=== PATIENT | male | born 1945 | race African-American/Black ===

== ENCOUNTER 2016-10-17 03:58 | Emergency (ER) | payer MEDICARE, MEDICAID ==
[2016-10-17 04:08] VITALS: BP 169/79
--- NOTE | 2016-10-17 04:18 | ER Document Report ---
ED General - General Stated Complaint: FALL ANKLE PAIN Time Seen by Provider: 10/17/16 04:07 Notes: Patient is a 71-year-old male who is brought in from the prison because he fell. The initial complaint via the paramedics was at the prison thought that he hurt his right ankle. Patient denies any pain to me. At the prison the patient was able to get out of his bed and walk to the stretcher and then lay down on the stretcher. He denies any has had. I did review his records and he is not on any blood thinners. He does have history of dementia. He says that he fell of his bed when he was trying to get out. He says his knee hit the rail and he fell. No other complaints at this time. She denies back pain. He denies head pain. Denies chest or abdomen pain. TRAVEL OUTSIDE OF THE [place] IN LAST 30 DAYS: No - Related Data Allergies/Adverse Reactions: No Known Allergies Allergy (Verified 01/06/14 12:18) Past Medical History - Social History Smoking Status: Never Smoker Frequency of alcohol use: None Drug Abuse: None Family History: Reviewed & Not Pertinent - Past Medical History Cardiac Medical History: Reports: Hx Hypercholesterolemia, Hx Hypertension Pulmonary Medical History: Denies: Hx Tuberculosis Endocrine Medical History: Reports: Hx Diabetes Mellitus Type 2 Psychiatric Medical History: Reports: Hx Dementia, Hx Schizophrenia Past Surgical History: Reports: Hx Orthopedic Surgery - foot surgery - Immunizations Hx Diphtheria, Pertussis, Tetanus Vaccination: Yes Review of Systems - Review of Systems Notes: My Normal Review Basic REVIEW OF SYSTEMS: CONSTITUTIONAL : Denies fever, chills, or sweats. Denies recent illness. EENT: Denies eye, ear, throat, or mouth pain or symptoms. Denies nasal or sinus congestion. CARDIOVASCULAR: Denies chest pain. RESPIRATORY: Denies cough, cold, or chest congestion. Denies shortness of breath, difficulty breathing, or wheezing. GASTROINTESTINAL: Denies abdominal pain. Denies nausea, vomiting, or diarrhea. Denies constipation. Last BM: GENITOURINARY: Denies difficulty urinating, painful urination, burning, frequency, or blood in urine. MUSCULOSKELETAL: Denies neck or back pain or joint pain or swelling. SKIN: Denies rash or skin lesions. NEUROLOGICAL: Has Alzheimers. denies headache. Denies weakness or paralysis or loss of use of either side. Denies problems with gait or speech. Denies sensory or motor loss. ALL OTHER SYSTEMS REVIEWED AND NEGATIVE. Physical Exam - Vital signs Vitals: Temp Pulse Resp BP Pulse Ox 97.1 F 54 L 18 169/79 H 99 10/17/16 04:03 10/17/16 04:03 10/17/16 04:03 10/17/16 04:03 10/17/16 04:03 - Notes Notes: General Appearance: Well nourished, alert, cooperative, no acute distress, no obvious discomfort. Well appearing Vitals: reviewed, See vital signs table. Head: no swelling or tenderness to the head Eyes: PERRL, EOMI, Conjuctiva clear Mouth: No decreasd moisture Neck: Supple, no neck tenderness, No thyromegaly Back: Pain to palpation of thoracic or lumbar spine. No step-offs or deformities Lungs: No wheezing, No rales, No rhonci, No accessory muscle use, good air exchange bilaterally. Heart: Normal rate, Regular rythm, No murmur, no rub Abdomen: Normal BS, soft, No rigidity, No abdominal tenderness, No guarding, no rebound, no abdominal masses, no organomegaly Extremities: strength 5/5 in all extremities, good pulses in all extremities, no swelling or tenderness in the extremities, no edema. Patient has no pain when I place all his joints in his extremities through full range of motion. Able stand and bear weight and walk without having any pain in his feet or ankles. No pain in hip upon standing Skin: warm, dry, appropriate color, no rash Neuro: speech clear, oriented x 2, normal affect, responds appropriately to questions. Course - Vital Signs Vital signs: Temp Pulse Resp BP Pulse Ox 97.1 F 54 L 18 169/79 H 99 10/17/16 04:03 10/17/16 04:03 10/17/16 04:03 10/17/16 04:03 10/17/16 04:03 - Transfer of Care Notes: 10/17/16 04:17 Do not see any evidence of any serious injuries. Patient looks and feels. I do not see any deformities. I do not reproduce any pain to palpation on his full body exam. The initial complaint was of ankle pain per the prison report to the paramedics. Elicit any pain when I place his ankle through full range of motion. Also the pain patient can bear weight and walk without causing any pain in his ankles. I do not feel he needs an x-ray. Patient is not on blood thinners when I look through his medication list. He has no swelling or signs of injury to his head or neck. At this time I feel patient safe to be discharged back to prison. He is to return to ER if he has any complaints of pain, vomiting, or appears more confused than usual. Dictation of this chart was performed using voice recognition software; therefore, there may be some unintended grammatical errors. Discharge - Discharge Clinical Impression: Fall Qualifiers: Encounter type: initial encounter Qualified Code(s): W19.XXXA - Unspecified fall, initial encounter Dementia Qualifiers: Dementia type: unspecified type Dementia behavioral disturbance: without behavioral disturbance Qualified Code(s): F03.90 - Unspecified dementia without behavioral disturbance Condition: Good Disposition: HOME, SELF-CARE Additional Instructions: Please send Mr. Marrero back to the ER if he is complaining of intractable pain, headache, vomiting, or is more confused than his baseline.
== END 2016-10-17 04:50 | disposition home or self-care (01) ==
LOC: ER 03:58
DX: Z04.3 Encounter for examination and observation following other accident (principal); W06.XXXA Fall from bed, initial encounter; Y93.89 Activity, other specified; Y92.129 Unspecified place in nursing home as the place of occurrence of the external cause; G30.9 Alzheimer's disease, unspecified; F02.80 Dementia in other diseases classified elsewhere, unspecified severity, without behavioral disturbance, psychotic disturbance, mood disturbance, and anxiety; E11.9 Type 2 diabetes mellitus without complications; I10 Essential (primary) hypertension
CPT/HCPCS: 99284

== ENCOUNTER 2017-02-11 18:10 | Emergency (ER) | payer MEDICARE, MEDICAID ==
[2017-02-11 18:54] LABS: ABSOLUTE EOSINOPHILS # (AUTO) 0.3 10^3/uL (0.0-0.6); ABSOLUTE LYMPHOCYTES (AUTO) 2.3 10^3/uL (0.5-4.7); ABSOLUTE MONOCYTES (AUTO) 0.6 10^3/uL (0.1-1.4); ABSOLUTE NEUT (AUTO) 1.7 10^3/uL (1.7-8.2); BASOPHILS % (AUTO) 0.8 % (0-2); HEMOGLOBIN 13.4 g/dL (13.5-17.0); HGB HCT DIFFERENCE 1.2; LYMPHOCYTES % (AUTO) 47.7 % (13-45); MEAN CORPUSCULAR HEMOGLOBIN 31.2 pg (27.0-33.4); MEAN CORPUSCULAR HGB CONC 34.4 g/dL (32.0-36.0); MEAN CORPUSCULAR VOLUME 91 fl (80-97); MONOCYTES % (AUTO) 11.6 % (3-13); RED BLOOD COUNT 4.29 10^6/uL (4.35-5.55); SEGMENTED NEUTROPHILS % (AUTO) 33.9 % (42-78); WHITE BLOOD COUNT 4.9 10^3/uL (4.0-10.5)
[2017-02-11 19:13] LABS: ALANINE AMINOTRANSFERASE 28 U/L (21-72); ALBUMIN 3.6 g/dL (3.5-5.0); ALKALINE PHOSPHATASE 56 U/L (38-126); ANION GAP 10 (5-19); ASPARTATE AMINO TRANSFERASE 17 U/L (17-59); BILIRUBIN,DIRECT 0.2 mg/dL (0.0-0.4); BILIRUBIN,TOTAL 0.3 mg/dL (0.2-1.3); BLOOD UREA NITROGEN 18 mg/dL (7-20); CALCIUM 9.5 mg/dL (8.4-10.2); CARBON DIOXIDE 26 mmol/L (22-30); CHLORIDE 103 mmol/L (98-107); CREATININE RESULT 1.25 mg/dL (0.52-1.25); GLUCOSE 238 mg/dL (75-110); POTASSIUM 4.3 mmol/L (3.6-5.0); SODIUM 139.2 mmol/L (137-145); TOTAL PROTEIN 6.5 g/dL (6.3-8.2)
[2017-02-11] MEDS ORDERED: INSULIN REG, HUMAN 100 UNIT/ML 3 ML VIAL (PYX) SUBCUT ONE (19:19)
--- NOTE | 2017-02-11 19:20 | ER Document Report ---
ED General - General Chief Complaint: High Blood Sugar Stated Complaint: BLOOD SUGAR ISSUES Time Seen by Provider: 02/11/17 18:25 Mode of Arrival: Medic Information source: Emergency Med Personnel Cannot obtain history due to: Dementia, Other Notes: 71-year-old male history of dementia diabetes presents from care facility with concerns of high blood sugar. Patient's blood sugar was noted to be in the 350s by the care facility when checked by EMS was at 220. Patient has no complaints at all TRAVEL OUTSIDE OF THE [place] IN LAST 30 DAYS: No - HPI Onset: Just prior to arrival Onset/Duration: Sudden Quality of pain: No pain Severity: Mild Pain Level: Denies Associated symptoms: Other Exacerbated by: Denies Relieved by: Denies Similar symptoms previously: No Recently seen / treated by doctor: No - Related Data Allergies/Adverse Reactions: No Known Allergies Allergy (Verified 10/17/16 04:17) Past Medical History - Social History Smoking Status: Never Smoker Cigarette use (# per day): No Chew tobacco use (# tins/day): No Smoking Education Provided: No Family History: Reviewed & Not Pertinent - Past Medical History Cardiac Medical History: Reports: Hx Hypercholesterolemia, Hx Hypertension Pulmonary Medical History: Denies: Hx Tuberculosis Endocrine Medical History: Reports: Hx Diabetes Mellitus Type 2 Psychiatric Medical History: Reports: Hx Dementia, Hx Schizophrenia Past Surgical History: Reports: Hx Orthopedic Surgery - foot surgery - Immunizations Hx Diphtheria, Pertussis, Tetanus Vaccination: Yes Review of Systems - Review of Systems Notes: REVIEW OF SYSTEMS: CONSTITUTIONAL : Denies fever, chills, or sweats. Denies recent illness. EENT: Denies eye, ear, throat, or mouth pain or symptoms. Denies nasal or sinus congestion or discharge. Denies throat, tongue, or mouth swelling or difficulty swallowing. CARDIOVASCULAR: Denies chest pain. Denies palpitations or racing or irregular heart beat. Denies ankle edema. RESPIRATORY: Denies cough, cold, or chest congestion. Denies shortness of breath, difficulty breathing, or wheezing. GASTROINTESTINAL: Denies abdominal pain or distention. Denies nausea, vomiting , or diarrhea. Denies blood in vomitus, stools, or per rectum. Denies black, tarry stools. Denies constipation. GENITOURINARY: Denies difficulty urinating, painful urination, burning, frequency, blood in urine, or discharge. MUSCULOSKELETAL: Denies back or neck pain or stiffness. Denies joint pain or swelling. SKIN: Denies rash, lesions or sores. HEMATOLOGIC : Denies easy bruising or bleeding. LYMPHATIC: Denies swollen, enlarged glands. NEUROLOGICAL: Denies confusion or altered mental status. Denies passing out or loss of consciousness. Denies dizziness or lightheadedness. Denies headache. Denies weakness or paralysis or loss of use of either side. Denies problems with gait or speech. Denies sensory loss, numbness, or tingling. Denies seizures. PSYCHIATRIC: Denies anxiety or stress. Denies depression, suicidal ideation, or homicidal ideation. ALL OTHER SYSTEMS REVIEWED AND NEGATIVE. Dictation was performed using [employer] voice recognition software PHYSICAL EXAMINATION: GENERAL: Well-appearing, well-nourished and in no acute distress. HEAD: Atraumatic, normocephalic. EYES: Pupils equal round and reactive to light, extraocular movements intact, sclera anicteric, conjunctiva are normal. ENT: Nares patent, oropharynx clear without exudates. Moist mucous membranes. NECK: Normal range of motion, supple without lymphadenopathy LUNGS: Breath sounds clear to auscultation bilaterally and equal. No wheezes rales or rhonchi. HEART: Regular rate and rhythm without murmurs ABDOMEN: Soft, nontender, nondistended abdomen. No guarding, no rebound. No masses appreciated. Musculoskeletal: Normal range of motion, no pitting or edema. No cyanosis. NEUROLOGICAL: Baseline dementia PSYCH: Normal mood, normal affect. SKIN: Warm, Dry, normal turgor, no rashes or lesions noted. Course - Re-evaluation Re-evalutation: 02/11/17 19:22 Patient's blood sugar was not noted to be significantly elevated, he has no signs of diabetic ketoacidosis. This could have easily been treated at the care facility that the patient was in. He was given subcutaneous insulin and is otherwise stable for discharge After performing a Medical Screening Examination, I estimate there is LOW risk for ACUTE APPENDICITIS, BOWEL OBSTRUCTION, ACUTE CHOLECYSTITIS, PERFORATED DIVERTICULITIS, INCARCERATED HERNIA, PANCREATITIS, TESTICULAR TORSION or PERFORATED ULCER, thus I consider the discharge disposition reasonable. Also, there is no evidence or peritonitis, sepsis, or toxicity. I have reevaluated this patient multiple times and no significant life threatening changes are noted. The patient and I have discussed the diagnosis and risks, and we agree with discharging home with close follow-up with the understanding that symptoms and presentations can change. We also discussed returning to the Emergency Department immediately if new or worsening symptoms occur. We have discussed the symptoms which are most concerning (e.g., bloody stool, fever, changing or worsening pain, intractable vomiting - standard verbal up date) that necessitate immediate return. - Laboratory Result Diagrams: 02/11/17 18:45 02/11/17 18:45 Laboratory results interpreted by me: 02/11/17 02/11/17 18:45 18:45 RBC 4.29 L Hgb 13.4 L Plt Count 100 L Seg Neutrophils % 33.9 L Lymphocytes % 47.7 H Est GFR (Non-Af Amer) 57 L Glucose 238 H Discharge - Discharge Clinical Impression: Hyperglycemia Condition: Stable Disposition: HOME, SELF-CARE Instructions: Hyperglycemia ([facility]) Additional Instructions: Follow up with your physician tomorrow for further care or return to the ED IMMEDIATELY if symptoms worsen or new concerns occur. If you cannot afford to follow up with your primary care physician a list of low cost clinics have been provided at the end of your discharge papers as well.
[2017-02-11 19:51] VITALS: BP 178/79
== END 2017-02-11 20:05 | disposition home or self-care (01) ==
LOC: ER 18:10
DX: E11.65 Type 2 diabetes mellitus with hyperglycemia (principal); I10 Essential (primary) hypertension; F03.90 Unspecified dementia, unspecified severity, without behavioral disturbance, psychotic disturbance, mood disturbance, and anxiety
CPT/HCPCS: 36415; 80053; 82962; 85025; 99284; J1815

== ENCOUNTER 2017-11-20 11:38 | Emergency (ER) | payer MEDICARE, MEDICAID ==
--- NOTE | 2017-11-20 12:10 | ER Document Report ---
ED General - General Chief Complaint: Altered Mental Status Stated Complaint: GENERAL WEAKNESS Time Seen by Provider: 11/20/17 12:08 Notes: Patient was referred here from the [facility], where he is a resident. He has a history of dementia but apparently had more significant mental status change this morning and was acting "lethargic", according to the staff. His blood pressure was 200/98 at the [facility] and his heart rate was low, so he was sent here for evaluation. There is no other history except as provided by the patient and that is unreliable, although the patient does know he is in a hospital and what his name is. Reviewing the patient's records provided by the [facility], patient is an insulin-dependent diabetic, has hypertension and high cholesterol, and also diagnosed with schizophrenia. No other information available. Patient says he just wants to take a nap. Denies any pains. Specifically denies pains in his head, chest, abdomen, or any difficulty breathing or shortness of breath. TRAVEL OUTSIDE OF THE [place] IN LAST 30 DAYS: No - Related Data Allergies/Adverse Reactions: No Known Allergies Allergy (Verified 02/11/17 19:36) Past Medical History - Social History Smoking Status: Unknown if Ever Smoked Family History: Reviewed & Not Pertinent - Past Medical History Cardiac Medical History: Reports: Hx Hypercholesterolemia, Hx Hypertension Endocrine Medical History: Reports: Hx Diabetes Mellitus Type 1, Hx Diabetes Mellitus Type 2 Psychiatric Medical History: Reports: Hx Dementia, Hx Schizophrenia Past Surgical History: Reports: Hx Orthopedic Surgery - foot surgery - Immunizations Hx Diphtheria, Pertussis, Tetanus Vaccination: Yes Review of Systems - Review of Systems Notes: Patient is unable to provide a reliable and accurate review of systems. See HPI for limited review of systems provided by staff at the [facility] and EMS, -: Yes ROS unobtainable due to patient's medical condition Physical Exam - Vital signs Vitals: Temp Pulse Resp BP Pulse Ox 97.9 F 57 L 19 139/77 H 96 11/20/17 11:39 11/20/17 11:39 11/20/17 11:39 11/20/17 11:39 11/20/17 11:39 Interpretation: Normal - Notes Notes: PHYSICAL EXAMINATION: GENERAL: Well-appearing, in no acute distress. Vital signs are all normal. HEAD: Atraumatic, normocephalic. EYES: Pupils equal round and reactive to light, extraocular movements intact. ENT: oropharynx clear without exudates. Moist mucous membranes. NECK: Normal range of motion, supple. LUNGS: Breath sounds clear and equal bilaterally. HEART: Regular rate and rhythm without murmurs. ABDOMEN: Soft, nontender. No guarding or rebound. No masses. BACK: No tenderness throughout entire back. EXTREMITIES: Normal range of motion without pain. NEUROLOGICAL: Normal speech, gait not tested. Grossly normal sensory, motor, and reflex exams. Awake, alert, but only to person and place. Has no complaints. Specifically denies headache, chest pain, other symptoms. PSYCH: Normal mood, normal affect. SKIN: Warm, dry, no rashes. Course - Vital Signs Vital signs: Temp Pulse Resp BP Pulse Ox 98.0 F 57 L 19 162/86 H 99 11/20/17 12:32 11/20/17 11:39 11/20/17 14:01 11/20/17 14:01 11/20/17 14:01 - Laboratory Result Diagrams: 11/20/17 12:26 11/20/17 11:26 Laboratory results interpreted by me: 11/20/17 11/20/17 11/20/17 11:26 12:26 13:54 RBC 4.03 L Hgb 12.2 L Hct 36.5 L RDW 14.2 H Plt Count 115 L Eosinophils % 6.9 H Chloride 108 H Glucose 124 H Total Protein 6.2 L Albumin 3.2 L Urine Protein 30 H Urine Urobilinogen 2.0 H - Diagnostic Test Radiology results interpreted by nj: 11/20/17 15:57 Chest x-ray shows mild increase in pulmonary vascular congestion. No acute changes. - EKG Interpretation by Tn EKG shows normal: Sinus rhythm - Range of 58 Rate: Normal Rhythm: NSR Voltage: Consistant with [facility] Discharge - Discharge Clinical Impression: Altered mental status, Dementia Condition: Stable Disposition: HOME, SELF-CARE Additional Instructions: Altered Mental Status An altered mental status is a change in the normal functioning of the brain. This alteration of function can range from minor decreased brain function with some forgetfulness and confusion to complete loss of consciousness and coma. There are many possible causes of an altered mental status and include brain injuries such as trauma or strokes, problems with oxygen supply to the brain, fever and infections of the brain and/or elsewhere in the body, metabolic abnormalities such as low or high blood sugar, overdoses or excessive medication ingestion, and mental and psychiatric illnesses. Sometimes the altered mental status resolves and a definite cause is not determined. If a cause for your altered mental status was found, it has likely been corrected. Your evaluation has not shown any condition that requires that you be admitted to the hospital. It is believed that you are safe to leave and return to your home. If you have a return of your symptoms, you should return for re-evaluation. Dementia: The exam shows a decrease in mental ability called dementia. Signs of dementia include a gradual loss of memory and a decreased ability to reason and solve problems. Personality changes, hostility, lack of self-care, and loss of bladder or bowel control are later signs of dementia. In these later stages, patients may become confused, lost, fearful, or agitated, even in familiar places. Alzheimer's disease is the most common type of dementia. It has no known cause or specific treatment. Other causes include alcohol and drug abuse, medication effects (especially tranquilizers and sleeping pills), strokes, head injuries, and brain tumors. Sometimes severe depression in an elderly person is mistaken for dementia, and this can be treated if recognized. A complete medical evaluation and ongoing care with a doctor is important. Most people with dementia need help or supervision with daily living. Some may be able to live independently with occasional help; others require foster care or even senior care placement. Alcohol, sedatives, and antihistamines may make the symptoms worse and should be avoided. Alzheimer's disease support groups are available in some communities and can be very valuable to the entire family. Prescription medication can ease the symptoms of Alzheimer's disease in some patients. Please arrange for medical follow-up. Return here if there is a sudden change in mental function, inability to move an arm or leg, inability to speak, fever, or any other significant change. NORMAL EXAM AND WORKUP: At this time, your examination and workup show no significant abnormality. No significant abnormal physical findings were noted. All laboratory, EKG, and imaging (x-ray, CT scans, ultrasound) studies that were ordered show no significant abnormality. Although your examination and all studies that were ordered showed no significant abnormal finding, there are no examinations and no studies that are 100% accurate. There is always the possibility that some abnormality could exist and not be detected with physical examination or within the limits and capabilities of laboratory and other studies. You should return or follow up as you were instructed on your visit today for further evaluation if your symptoms do not resolve. FOLLOW-UP CARE: If you have been referred to a physician for follow-up care, call the physician s office for an appointment as you were instructed or within the next two days. If you experience worsening or a significant change in your symptoms, notify the physician immediately or return to the Emergency Department at any time for re-evaluation. Referrals: MARICARMEN FLOYD ND [Primary Care Provider] - Follow up as needed
[2017-11-20 12:43] LABS: ABSOLUTE BASOPHILS # (AUTO) 0.1 10^3/uL (0.0-0.2); ABSOLUTE EOSINOPHILS # (AUTO) 0.3 10^3/uL (0.0-0.6); ABSOLUTE LYMPHOCYTES (AUTO) 1.5 10^3/uL (0.5-4.7); ABSOLUTE MONOCYTES (AUTO) 0.6 10^3/uL (0.1-1.4); ABSOLUTE NEUT (AUTO) 2.1 10^3/uL (1.7-8.2); BASOPHILS % (AUTO) 1.1 % (0-2); EOSINOPHILS % (AUTO) 6.9 % (0-6); HEMATOCRIT 36.5 % (37.9-51.0); HEMOGLOBIN 12.2 g/dL (13.5-17.0); LYMPHOCYTES % (AUTO) 32.3 % (13-45); MEAN CORPUSCULAR HEMOGLOBIN 30.3 pg (27.0-33.4); MEAN CORPUSCULAR HGB CONC 33.6 g/dL (32.0-36.0); MEAN CORPUSCULAR VOLUME 90 fl (80-97); MONOCYTES % (AUTO) 12.8 % (3-13); PLATELET COUNT 115 10^3/uL (150-450); RED BLOOD COUNT 4.03 10^6/uL (4.35-5.55); RED CELL DISTRIBUTION WIDTH 14.2 % (11.5-14.0); SEGMENTED NEUTROPHILS % (AUTO) 46.9 % (42-78); TOTAL CELLS COUNTED % (AUTO) 100 %; WHITE BLOOD COUNT 4.5 10^3/uL (4.0-10.5)
[2017-11-20 13:03] LABS: ALANINE AMINOTRANSFERASE 26 U/L (21-72); ALBUMIN 3.2 g/dL (3.5-5.0); ALKALINE PHOSPHATASE 48 U/L (38-126); ANION GAP 9 (5-19); ASPARTATE AMINO TRANSFERASE 22 U/L (17-59); BILIRUBIN,DIRECT 0.2 mg/dL (0.0-0.4); BILIRUBIN,TOTAL 0.4 mg/dL (0.2-1.3); BLOOD UREA NITROGEN 15 mg/dL (7-20); CALCIUM 9.2 mg/dL (8.4-10.2); CARBON DIOXIDE 24 mmol/L (22-30); CHLORIDE 108 mmol/L (98-107); GLUCOSE 124 mg/dL (75-110); POTASSIUM 4.3 mmol/L (3.6-5.0); TOTAL PROTEIN 6.2 g/dL (6.3-8.2)
--- NOTE | 2017-11-20 13:12 | RADIOLOGY REPORT (SQ) ---
EXAM DESCRIPTION: CHEST SINGLE VIEW COMPLETED DATE/TIME: 11/20/2017 1:00 pm REASON FOR STUDY: Altered mental status COMPARISON: December 2013 EXAM PARAMETERS: NUMBER OF VIEWS: One view. TECHNIQUE: Single frontal radiographic view of the chest acquired. RADIATION DOSE: NA LIMITATIONS: Patient has made a shallow inspiration. FINDINGS: LUNGS AND PLEURA: No opacities, masses or pneumothorax. No pleural effusion. MEDIASTINUM AND HILAR STRUCTURES: No masses. Contour normal. HEART AND VASCULAR STRUCTURES: Cardiac silhouette is mildly enlarged. There is mild pulmonary vascul ar congestion BONES: No acute findings. HARDWARE: None in the chest. OTHER: No other significant finding. IMPRESSION: Cardiomegaly with mild pulmonary vascular congestion which may be in part related to the shallow inspiration. No acute consolidations or pleural effusions. Other findings as noted above TECHNICAL DOCUMENTATION: JOB ID: [id number] [employer]- All Rights Reserved Reading location - IP/workstation name: [email or web address]
[2017-11-20 14:05] VITALS: BP 162/86
[2017-11-20 14:24] LABS: APPEARANCE,URINE CLEAR; BILIRUBIN,URINE NEGATIVE (NEGATIVE); COLOR,URINE YELLOW; GLUCOSE, URINE NEGATIVE (NEGATIVE); KETONES,URINE NEGATIVE (NEGATIVE); LEUKOCYTE ESTERASE,URINE NEGATIVE (NEGATIVE); NITRITE,URINE NEGATIVE (NEGATIVE); PROTEIN,URINE 30 mg/dL (NEGATIVE); URINE SPECIFIC GRAVITY 1.009
--- NOTE | 2017-11-20 22:34 | EKG REPORT ---
SEVERITY:- ABNORMAL ECG - SINUS RHYTHM PROBABLE LVH WITH SECONDARY REPOL ABNRM : Confirmed by: Eva Mayo 20-Nov-2017 22:34:08
== END 2017-11-20 16:42 | disposition home or self-care (01) ==
LOC: ER 11:38
DX: F03.90 Unspecified dementia, unspecified severity, without behavioral disturbance, psychotic disturbance, mood disturbance, and anxiety (principal); R09.89 Other specified symptoms and signs involving the circulatory and respiratory systems; R53.83 Other fatigue; I10 Essential (primary) hypertension; E11.9 Type 2 diabetes mellitus without complications; Z79.4 Long term (current) use of insulin
CPT/HCPCS: 36415; 71045; 80053; 81001; 85025; 87040; 87086; 93005; 93010; 99285

== ENCOUNTER 2018-01-31 11:24 | Emergency (ER) | payer MEDICARE, MEDICAID ==
--- NOTE | 2018-01-31 11:51 | ER Document Report ---
ED General - General Stated Complaint: ALTERED MENTAL STATUS Time Seen by Provider: 01/31/18 11:30 TRAVEL OUTSIDE OF THE [place] IN LAST 30 DAYS: No - HPI Notes: Patient is a 72-year-old male that presents to the emergency department for chief complaint of altered mental status. She has Alzheimer's and lives at an Alzheimer's care facility. They noticed he seemed "altered" today. When he checked his blood glucose it was reportedly 53. They gave him crackers and orange juice. EMS arrived and stated his blood sugar was 170. Patient has no complaints. There is no report of recent illness or fevers. HPI is limited because of his dementia Past Medical History: Alzheimer's Past Surgical History: Reviewed in chart Social History: Reviewed in chart Family History: Reviewed and noncontributory for presenting illness Allergies: Reviewed, see documented allergy list. REVIEW OF SYSTEMS: CONSTITUTIONAL : No fever No chills No diaphoresis No recent illness EENT: No vision changes No congestion No sore throat CARDIOVASCULAR: No chest pain No palpitations RESPIRATORY: No shortness of breath No cough No difficulty breathing GASTROINTESTINAL: No abdominal pain No nausea No vomiting No diarrhea GENITOURINARY: No dysuria No hematuria No difficulty urinating MUSCULOSKELETAL: No back pain No leg pain No arm pain SKIN: No rashes No lesions LYMPHATIC: No swollen, enlarged glands. NEUROLOGICAL: No lightheadedness No headache No weakness No paresthesias PSYCHIATRIC: No anxiety No depression PHYSICAL EXAMINATION: Vital signs reviewed, nursing noted reviewed. GENERAL: Well-appearing, well-nourished and in no acute distress. HEAD: Atraumatic, normocephalic. EYES: Eyes appear normal, extraocular movements intact, sclera anicteric, conjunctiva are normal. ENT: nares patent, oropharynx clear without exudates. Moist mucous membranes. NECK: Normal range of motion, supple without lymphadenopathy LUNGS: Breath sounds clear to auscultation bilaterally and equal. No wheezes rales or rhonchi. HEART: Regular rate and rhythm without murmurs ABDOMEN: Soft, nontender, normoactive bowel sounds. No rebound, guarding, or rigidity. No masses appreciated. EXTREMITIES: Nontender, good range of motion, no pitting or edema. NEUROLOGICAL: Oriented to person and place. No focal neurological deficits. Moves all extremities spontaneously Motor and sensory grossly intact on exam. PSYCH: Normal mood, normal affect. SKIN: Warm, Dry, normal turgor, no rashes or lesions noted on exposed skin - Related Data Allergies/Adverse Reactions: No Known Allergies Allergy (Verified 02/11/17 19:36) Past Medical History - Social History Smoking Status: Unknown if Ever Smoked Family History: Reviewed & Not Pertinent - Past Medical History Cardiac Medical History: Reports: Hx Hypercholesterolemia, Hx Hypertension Pulmonary Medical History: Denies: Hx Tuberculosis Endocrine Medical History: Reports: Hx Diabetes Mellitus Type 1, Hx Diabetes Mellitus Type 2 Renal/ Medical History: Denies: Hx Peritoneal Dialysis Psychiatric Medical History: Reports: Hx Dementia, Hx Schizophrenia Past Surgical History: Reports: Hx Orthopedic Surgery - foot surgery - Immunizations Hx Diphtheria, Pertussis, Tetanus Vaccination: Yes Review of Systems - Review of Systems Notes: Dictated Physical Exam - Vital signs Vitals: Resp Pulse Ox 17 97 01/31/18 11:39 01/31/18 11:39 - Notes Notes: Dictated Course - Re-evaluation Re-evalutation: 01/31/18 11:51 Vitals reviewed. Nursing notes reviewed. Patient is awake and in no acute distress. Blood glucose was 171 reported by EMS. 01/31/18 13:06 Patient has remained hemodynamically stable. His blood glucose is 152. There are no signs of infection on chest x-ray or urinalysis. He has no anemia. The remainder of his lab work is unremarkable. Patients mental status changes likely related to his transient hypoglycemia. He is an insulin-dependent diabetic. Blood glucose has remained stable while in the ED. He will be discharged back to his nursing facility. Laboratory 01/31/18 01/31/18 01/31/18 11:30 11:30 11:49 WBC 4.1 RBC 4.14 L Hgb 12.8 L Hct 38.3 MCV 93 MCH 31.0 MCHC 33.5 RDW 14.4 H Plt Count 116 L Seg Neutrophils % 54.0 Lymphocytes % 30.0 Monocytes % 11.8 Eosinophils % 3.4 Basophils % 0.8 Absolute Neutrophils 2.2 Absolute Lymphocytes 1.2 Absolute Monocytes 0.5 Absolute Eosinophils 0.1 Absolute Basophils 0.0 Sodium Potassium Chloride Carbon Dioxide Anion Gap BUN Creatinine Est GFR ( Amer) Est GFR (Non-Af Amer) Glucose POC Glucose 139 H Calcium Total Bilirubin Direct Bilirubin Neonat Total Bilirubin Neonat Direct Bilirubin Neonat Indirect Bili AST ALT Alkaline Phosphatase Troponin I Total Protein Albumin Urine Color STRAW Urine Appearance CLEAR Urine pH 6.0 Ur Specific Knott 1.006 Urine Protein NEGATIVE Urine Glucose (UA) 50 H Urine Ketones NEGATIVE Urine Blood NEGATIVE Urine Nitrite NEGATIVE Urine Bilirubin NEGATIVE Urine Urobilinogen NEGATIVE Ur Leukocyte Esterase NEGATIVE Urine RBC (Auto) 0 Urine Mucus (Auto) RARE Urine Ascorbic Acid NEGATIVE 01/31/18 01/31/18 11:49 11:49 WBC RBC Hgb Hct MCV MCH MCHC RDW Plt Count Seg Neutrophils % Lymphocytes % Monocytes % Eosinophils % Basophils % Absolute Neutrophils Absolute Lymphocytes Absolute Monocytes Absolute Eosinophils Absolute Basophils Sodium 141.0 Potassium 4.5 Chloride 109 H Carbon Dioxide 26 Anion Gap 6 BUN 16 Creatinine 1.14 Est GFR ( Amer) > 60 Est GFR (Non-Af Amer) > 60 Glucose 152 H POC Glucose Calcium 9.4 Total Bilirubin 0.6 Direct Bilirubin 0.2 Neonat Total Bilirubin Not Reportable Neonat Direct Bilirubin Not Reportable Neonat Indirect Bili Not Reportable AST 26 ALT 20 L Alkaline Phosphatase 47 Troponin I < 0.012 Total Protein 6.5 Albumin 3.3 L Urine Color Urine Appearance Urine pH Ur Specific Knott Urine Protein Urine Glucose (UA) Urine Ketones Urine Blood Urine Nitrite Urine Bilirubin Urine Urobilinogen Ur Leukocyte Esterase Urine RBC (Auto) Urine Mucus (Auto) Urine Ascorbic Acid Chest X-Ray 01/31/18 11:30 IMPRESSION: NO ACUTE FINDINGS. - Vital Signs Vital signs: Temp Pulse Resp BP Pulse Ox 97.6 F 16 152/80 H 100 01/31/18 11:59 01/31/18 11:55 01/31/18 11:55 01/31/18 11:55 - Laboratory Result Diagrams: 01/31/18 11:49 01/31/18 11:49 Laboratory results interpreted by me: 01/31/18 01/31/18 01/31/18 11:30 11:30 11:49 RBC 4.14 L Hgb 12.8 L RDW 14.4 H Plt Count 116 L Chloride Glucose POC Glucose 139 H ALT Albumin Urine Glucose (UA) 50 H 01/31/18 11:49 RBC Hgb RDW Plt Count Chloride 109 H Glucose 152 H POC Glucose ALT 20 L Albumin 3.3 L Urine Glucose (UA) - EKG Interpretation by Me Additional EKG results interpreted by me: 01/31/18 11:52Interpreted by myself [id number]: Venous bradycardia, rate 55, normal axis, no ectopy, nonspecific ST changes Discharge - Discharge Clinical Impression: Hypoglycemia Condition: Stable Disposition: HOME-SNF (ED ONLY) Instructions: Hypoglycemia ([facility]) Additional Instructions: Please return to the emergency department if you have any worsening, or concern of your symptoms. Please return to the emergency department if you develop chest pain, difficulty breathing, severe abdominal pain, or ongoing vomiting. Please follow-up with your primary care physician in 2-3 days and any other recommended physicians. If prescribed, take all medications as directed. If you have any questions or concerns do not hesitate to return the emergency department for evaluation. [] Referrals: MARICARMEN FLOYD ND [Primary Care Provider] - Follow up in 3-5 days
[2018-01-31 11:54] LABS: APPEARANCE,URINE CLEAR; BILIRUBIN,URINE NEGATIVE (NEGATIVE); COLOR,URINE STRAW; GLUCOSE, URINE 50 mg/dL (NEGATIVE); KETONES,URINE NEGATIVE (NEGATIVE); LEUKOCYTE ESTERASE,URINE NEGATIVE (NEGATIVE); NITRITE,URINE NEGATIVE (NEGATIVE); PROTEIN,URINE NEGATIVE (NEGATIVE); URINE SPECIFIC GRAVITY 1.006; UROBILINOGEN,URINE NEGATIVE mg/dL (<2.0)
--- NOTE | 2018-01-31 12:06 | RADIOLOGY REPORT (SQ) ---
EXAM DESCRIPTION: CHEST SINGLE VIEW COMPLETED DATE/TIME: 01/31/2018 11:57 am REASON FOR STUDY: mental status change COMPARISON: 11/20/2017 TECHNIQUE: Single frontal radiographic view of the chest acquired. NUMBER OF VIEWS: One view. LIMITATIONS: None. FINDINGS: LUNGS AND PLEURA: No pneumothorax. No consolidation or pleural effusion. MEDIASTINUM AND HILAR STRUCTURES: Stable. HEART AND VASCULAR STRUCTURES: Stable. BONES: No acute findings. HARDWARE: None in the chest. OTHER: No other significant finding. IMPRESSION: NO ACUTE FINDINGS. TECHNICAL DOCUMENTATION: JOB ID: [id number] [id number] 2010 [employer]- All Rights Reserved Reading location - IP/workstation name: [email or web address]
[2018-01-31 12:09] LABS: ABSOLUTE EOSINOPHILS # (AUTO) 0.1 10^3/uL (0.0-0.6); ABSOLUTE LYMPHOCYTES (AUTO) 1.2 10^3/uL (0.5-4.7); ABSOLUTE MONOCYTES (AUTO) 0.5 10^3/uL (0.1-1.4); ABSOLUTE NEUT (AUTO) 2.2 10^3/uL (1.7-8.2); BASOPHILS % (AUTO) 0.8 % (0-2); EOSINOPHILS % (AUTO) 3.4 % (0-6); HEMATOCRIT 38.3 % (37.9-51.0); HEMOGLOBIN 12.8 g/dL (13.5-17.0); MEAN CORPUSCULAR HGB CONC 33.5 g/dL (32.0-36.0); MEAN CORPUSCULAR VOLUME 93 fl (80-97); MONOCYTES % (AUTO) 11.8 % (3-13); RED BLOOD COUNT 4.14 10^6/uL (4.35-5.55); RED CELL DISTRIBUTION WIDTH 14.4 % (11.5-14.0); TOTAL CELLS COUNTED % (AUTO) 100 %; WHITE BLOOD COUNT 4.1 10^3/uL (4.0-10.5)
[2018-01-31 12:36] LABS: PLATELET COUNT 116 10^3/uL (150-450)
[2018-01-31 12:37] LABS: ALANINE AMINOTRANSFERASE 20 U/L (21-72); ALBUMIN 3.3 g/dL (3.5-5.0); ALKALINE PHOSPHATASE 47 U/L (38-126); ANION GAP 6 (5-19); ASPARTATE AMINO TRANSFERASE 26 U/L (17-59); BILIRUBIN,DIRECT 0.2 mg/dL (0.0-0.4); BILIRUBIN,TOTAL 0.6 mg/dL (0.2-1.3); BLOOD UREA NITROGEN 16 mg/dL (7-20); CALCIUM 9.4 mg/dL (8.4-10.2); CARBON DIOXIDE 26 mmol/L (22-30); CHLORIDE 109 mmol/L (98-107); GLUCOSE 152 mg/dL (75-110); POTASSIUM 4.5 mmol/L (3.6-5.0); TOTAL PROTEIN 6.5 g/dL (6.3-8.2)
[2018-01-31 13:31] VITALS: BP 152/60
--- NOTE | 2018-01-31 20:51 | EKG REPORT ---
SEVERITY:- ABNORMAL ECG - SINUS RHYTHM NONSPECIFIC T ABNORMALITIES, INFERIOR LEADS : Confirmed by: Yumiko Martin MD 31-Jan-2018 20:50:36
== END 2018-01-31 13:34 ==
LOC: ER 11:24
DX: E11.649 Type 2 diabetes mellitus with hypoglycemia without coma (principal); R41.82 Altered mental status, unspecified; G30.9 Alzheimer's disease, unspecified; F02.80 Dementia in other diseases classified elsewhere, unspecified severity, without behavioral disturbance, psychotic disturbance, mood disturbance, and anxiety; E78.00 Pure hypercholesterolemia, unspecified; I10 Essential (primary) hypertension
CPT/HCPCS: 36415; 71045; 80053; 81001; 82962; 84484; 85025; 87086; 93005; 93010; 99285

== ENCOUNTER 2018-04-22 18:29 | Emergency (ER) | payer MEDICARE, MEDICAID ==
--- NOTE | 2018-04-22 19:31 | ER Document Report ---
ED Respiratory Problem - General Chief Complaint: Shortness Of Breath Stated Complaint: BREATHING DIFFICULTY Time Seen by Provider: 04/22/18 19:31 Mode of Arrival: Ambulatory Information source: Emergency Med Personnel, Outside Facility Records Cannot obtain history due to: Dementia Notes: Patient is a 73-year-old male with multiple chronic health conditions including significant Alzheimer's dementia who presents with report of difficulty breathing. At baseline the patient has uncontrollable rhythmic movements of the upper extremity as well as grunting and moaning, he currently exhibits that now and is living facility states this is his baseline. They believed he was having more difficulty breathing because of these movements. EMS reports the patient was calm and in no acute distress during transit. TRAVEL OUTSIDE OF THE [place] IN LAST 30 DAYS: No - HPI Patient complains to provider of: Short of breath Onset: Just prior to arrival Severity: None Pain Level: Denies Short of Breath: Mild Sputum amount: None Associated symptoms: None Similar symptoms previously: No Recently seen / treated by doctor: No - Related Data Allergies/Adverse Reactions: No Known Allergies Allergy (Verified 02/11/17 19:36) Past Medical History - General Information source: Emergency Med Personnel, Outside Facility Records Cannot obtain history due to: Dementia - Social History Smoking Status: Unknown if Ever Smoked Chew tobacco use (# tins/day): No Frequency of alcohol use: None Drug Abuse: None [facility] with[facility] Family History: Reviewed & Not Pertinent Patient has suicidal ideation: No Patient has homicidal ideation: No - Past Medical History Cardiac Medical History: Reports: Hx Hypercholesterolemia, Hx Hypertension Pulmonary Medical History: Reports: None Denies: Hx Tuberculosis EENT Medical History: Reports: None Neurological Medical History: Reports: None Endocrine Medical History: Reports: Hx Diabetes Mellitus Type 1, Hx Diabetes Mellitus Type 2 Renal/ Medical History: Reports: None. Denies: Hx Peritoneal Dialysis Malignancy Medical History: Reports None GI Medical History: Reports: None Musculoskeletal Medical History: Reports None Skin Medical History: Reports None Psychiatric Medical History: Reports: Hx Dementia, Hx Schizophrenia Traumatic Medical History: Reports: None Infectious Medical History: Reports: None Surgical Hx: Negative Past Surgical History: Reports: Hx Orthopedic Surgery - foot surgery - Immunizations Hx Diphtheria, Pertussis, Tetanus Vaccination: Yes Review of Systems - Review of Systems -: Yes ROS unobtainable due to patient's medical condition - Advanced dementia Constitutional: No symptoms reported EENT: No symptoms reported Cardiovascular: No symptoms reported Respiratory: No symptoms reported Gastrointestinal: No symptoms reported Genitourinary: No symptoms reported Male Genitourinary: No symptoms reported Musculoskeletal: No symptoms reported Skin: No symptoms reported Hematologic/Lymphatic: No symptoms reported Neurological/Psychological: No symptoms reported -: Yes All other systems reviewed and negative Physical Exam - Vital signs Vitals: Pulse Ox 100 04/22/18 18:43 Interpretation: Normal - Notes Notes: Well-appearing in no acute distress - General General appearance: Appears well, Alert - HEENT Head: Normocephalic, Atraumatic Eyes: Normal Pupils: PERRL - Respiratory Respiratory status: No respiratory distress Chest status: Nontender Breath sounds: Normal Chest palpation: Normal - Cardiovascular Rhythm: Regular Heart sounds: Normal auscultation Murmur: No - Abdominal Inspection: Normal Distension: No distension Bowel sounds: Normal Tenderness: Nontender Organomegaly: No organomegaly - Rectal Notes: Deferred - Genitourinary Notes: Deferred - Back Back: Normal, Nontender - Extremities General upper extremity: Normal inspection, Nontender, Normal color, Normal ROM, Normal temperature General lower extremity: Normal inspection, Nontender, Normal color, Normal ROM, Normal temperature, Normal weight bearing. No: Elian's sign - Neurological Neuro grossly intact: Yes Cognition: Other - Unable to assess given his baseline mental status Angela Coma Scale Eye Opening: Spontaneous [place] Coma Scale Motor: Obeys Commands Speech: Normal Motor strength normal: LUE, RUE, LLE, RLE Sensory: Normal - Psychological Associated symptoms: Normal affect, Normal mood - Skin Skin Temperature: Warm Skin Moisture: Dry Skin Color: Normal Course - Re-evaluation Re-evalutation: 04/22/18 22:14 Patient appears to be at his baseline, lungs are clear, no evidence of acute respiratory distress. Will obtain chest x-ray and reassess. Plan is to discharge the patient if negative. 04/23/18 00:55 Chest x-ray is negative. Patient will be discharged back to his living facility with return precautions. - Vital Signs Vital signs: Temp Pulse Resp BP Pulse Ox 24 H 156/78 H 98 04/23/18 00:01 04/23/18 00:01 04/23/18 00:01 Discharge - Discharge Clinical Impression: General medical examination Condition: Good Disposition: HOME, SELF-CARE Additional Instructions: Please follow-up with your primary physician as needed. Return to the emergency department if you experience difficulty breathing, chest pain, or have any other concerning symptom. Referrals: MARICARMEN FLOYD ND [Primary Care Provider] - Follow up as needed Print Language: Kenyan
[2018-04-22] MEDS ORDERED: HALOPERIDOL 5 MG TABLET PO ONE (22:23)
--- NOTE | 2018-04-22 22:52 | RADIOLOGY REPORT (SQ) ---
EXAM DESCRIPTION: XR CHEST 1 VIEW COMPLETED DATE/TME: 04/22/2018 22:23 CLINICAL HISTORY: 73 years Male, Shortness of breath COMPARISON:01/31/2018 NUMBER OF VIEWS/TECHNIQUE: 1/AP FINDINGS: Adequate lung volume, clear parenchyma, normal cardiac silhouette, and intact bony thorax. IMPRESSION: No acute cardiopulmonary findings.
[2018-04-23 06:45] VITALS: BP 132/77
== END 2018-04-23 06:46 | disposition home or self-care (01) ==
LOC: ER 18:29
DX: Z00.00 Encounter for general adult medical examination without abnormal findings (principal); R06.02 Shortness of breath; G30.9 Alzheimer's disease, unspecified; F02.80 Dementia in other diseases classified elsewhere, unspecified severity, without behavioral disturbance, psychotic disturbance, mood disturbance, and anxiety; I10 Essential (primary) hypertension; E11.9 Type 2 diabetes mellitus without complications
CPT/HCPCS: 99285; 71045; A9270

== ENCOUNTER 2018-04-24 20:19 | Emergency (ER) | payer MEDICARE, MEDICAID ==
--- NOTE | 2018-04-24 20:23 | ER Document Report ---
ED General - General Stated Complaint: NAUSEA/VOMITING Time Seen by Provider: 04/24/18 20:22 Cannot obtain history due to: Dementia Notes: Patient is a 73-year-old male with a past medical history of hypertension and diabetes who presents by EMS due to nursing facility concerns that he had vomiting and diarrhea today. The patient is profoundly demented, does not speak, does not provide any meaningful history. EMS reports the patient has not had any vomiting or diarrhea while in their care. No additional history can be obtained. TRAVEL OUTSIDE OF THE [place] IN LAST 30 DAYS: No - Related Data Allergies/Adverse Reactions: No Known Allergies Allergy (Verified 02/11/17 19:36) Past Medical History - General Information source: Emergency Med Personnel Cannot obtain history due to: Dementia - Social History Smoking Status: Unknown if Ever Smoked Lives with[facility] Family History: Reviewed & Not Pertinent - Past Medical History Cardiac Medical History: Reports: Hx Hypercholesterolemia, Hx Hypertension Pulmonary Medical History: Denies: Hx Tuberculosis Endocrine Medical History: Reports: Hx Diabetes Mellitus Type 1, Hx Diabetes Mellitus Type 2 Renal/ Medical History: Denies: Hx Peritoneal Dialysis Psychiatric Medical History: Reports: Hx Dementia, Hx Schizophrenia Past Surgical History: Reports: Hx Orthopedic Surgery - foot surgery - Immunizations Hx Diphtheria, Pertussis, Tetanus Vaccination: Yes Review of Systems - Review of Systems -: Yes ROS unobtainable due to patient's medical condition Physical Exam - Vital signs Vitals: Resp 28 H 04/24/18 20:29 Interpretation: Tachypneic Notes: PHYSICAL EXAMINATION: GENERAL: Elderly, no acute distress HEAD: Atraumatic, normocephalic. EYES: Pupils equal round and reactive to light, extraocular movements intact, sclera anicteric, conjunctiva are normal. ENT: nares patent, oropharynx clear without exudates. Moist mucous membranes. NECK: Normal range of motion, supple without lymphadenopathy LUNGS: Irregular breathing pattern which EMS reports is normal. Breath sounds are equal and bilateral without wheezing or rales. HEART: Regular rate and rhythm without murmurs ABDOMEN: Soft, nontender, normoactive bowel sounds. No guarding, no rebound. No masses appreciated. EXTREMITIES: Normal range of motion, no pitting or edema. No cyanosis. NEUROLOGICAL: No focal neurological deficits. Moves all extremities spontaneously and on command. PSYCH: Nonverbal SKIN: Warm, Dry, normal turgor, no rashes or lesions noted. Course - Re-evaluation Re-evalutation: 04/24/18 20:23 Patient presents with skilled nursing report of several hours of nausea, vomiting and diarrhea. Patient is profound demented, unable to provide meaningful history. He does have a irregular breathing pattern which EMS and previous documentation reveals is his baseline. The patient has not had any diarrhea or vomiting for EMS, appears in no distress of any kind. Vitals within normal limits be a mild hypertension. Will obtain basic labs, stool studies if patient produces a stool sample. He has no abdominal tenderness of any kind and exam to suggest an acute surgical intra-abdominal pathology. 04/24/18 22:16 Patient has not had any episodes of vomiting or diarrhea while here in the emergency department. Labs are effectively unchanged from approximately 2 months ago. Patient has tolerated oral intake without any difficulty. At this time will discharge with return precautions and follow-up recommendations. - Vital Signs Vital signs: Temp Pulse Resp BP Pulse Ox 97.9 F 82 26 H 167/106 H 100 04/24/18 20:30 04/24/18 20:38 04/24/18 20:30 04/24/18 23:03 04/24/18 23:03 - Laboratory Result Diagrams: 04/24/18 21:00 04/24/18 21:00 Laboratory results interpreted by me: 04/24/18 04/24/18 21:00 21:00 RDW 14.6 H Plt Count 118 L Chloride 109 H Carbon Dioxide 17 L BUN 22 H Creatinine 1.36 H Est GFR (Non-Af Amer) 51 L Glucose 174 H Discharge - Discharge Clinical Impression: General medical examination, Vomiting and diarrhea Dementia Qualifiers: Dementia type: unspecified type Dementia behavioral disturbance: without behavioral disturbance Qualified Code(s): F03.90 - Unspecified dementia without behavioral disturbance Condition: Stable Disposition: HOME-SNF (ED ONLY) Additional Instructions: Patient has not had any additional vomiting or diarrhea here in the ED. He was unable to produce a stool sample to allow for stool testing. Labs are otherwise unchanged from previous. He may return for any additional concerns. Referrals: MARICARMEN FLOYD ND [Primary Care Provider] - Follow up as needed
[2018-04-24 21:26] LABS: ABSOLUTE EOSINOPHILS # (AUTO) 0.1 10^3/uL (0.0-0.6); ABSOLUTE LYMPHOCYTES (AUTO) 0.8 10^3/uL (0.5-4.7); ABSOLUTE MONOCYTES (AUTO) 0.6 10^3/uL (0.1-1.4); ABSOLUTE NEUT (AUTO) 4.4 10^3/uL (1.7-8.2); BASOPHILS % (AUTO) 0.3 % (0-2); HEMATOCRIT 41.5 % (37.9-51.0); HEMOGLOBIN 14.1 g/dL (13.5-17.0); LYMPHOCYTES % (AUTO) 13.9 % (13-45); MEAN CORPUSCULAR HEMOGLOBIN 31.2 pg (27.0-33.4); MEAN CORPUSCULAR HGB CONC 34.1 g/dL (32.0-36.0); MEAN CORPUSCULAR VOLUME 92 fl (80-97); RED BLOOD COUNT 4.53 10^6/uL (4.35-5.55); RED CELL DISTRIBUTION WIDTH 14.6 % (11.5-14.0); SEGMENTED NEUTROPHILS % (AUTO) 74.8 % (42-78); TOTAL CELLS COUNTED % (AUTO) 100 %; WHITE BLOOD COUNT 5.9 10^3/uL (4.0-10.5)
[2018-04-24 21:46] LABS: PLATELET COUNT 118 10^3/uL (150-450)
[2018-04-24 21:48] LABS: ALANINE AMINOTRANSFERASE 31 U/L (21-72); ALBUMIN 3.6 g/dL (3.5-5.0); ALKALINE PHOSPHATASE 76 U/L (38-126); ANION GAP 12 (5-19); ASPARTATE AMINO TRANSFERASE 41 U/L (17-59); BILIRUBIN,DIRECT 0.3 mg/dL (0.0-0.4); BILIRUBIN,TOTAL 0.7 mg/dL (0.2-1.3); BLOOD UREA NITROGEN 22 mg/dL (7-20); CALCIUM 9.9 mg/dL (8.4-10.2); CARBON DIOXIDE 17 mmol/L (22-30); CHLORIDE 109 mmol/L (98-107); GLUCOSE 174 mg/dL (75-110); POTASSIUM 4.1 mmol/L (3.6-5.0); TOTAL PROTEIN 6.7 g/dL (6.3-8.2)
[2018-04-24 22:45] VITALS: BP 167/106
== END 2018-04-25 01:15 ==
LOC: ER 20:19
DX: R11.2 Nausea with vomiting, unspecified (principal); R19.7 Diarrhea, unspecified; I10 Essential (primary) hypertension; E11.9 Type 2 diabetes mellitus without complications; F03.90 Unspecified dementia, unspecified severity, without behavioral disturbance, psychotic disturbance, mood disturbance, and anxiety; R06.09 Other forms of dyspnea
CPT/HCPCS: 36415; 80053; 85025; 99284

== ENCOUNTER 2018-05-01 09:17 | Emergency (ER) | payer MEDICARE, MEDICAID ==
--- NOTE | 2018-05-01 09:39 | ER Document Report ---
ED General - General Chief Complaint: Fall Stated Complaint: FALL Time Seen by Provider: 05/01/18 09:23 Mode of Arrival: Medic Information source: Emergency Med Personnel, Outside Facility Records - [facility] Notes: Patient presents to the emergency department via EMS for ports of fall. I contacted Geri tovar at the [facility] at [phone]. She reports that Mr. Marrero was standing in the dining room with his walker when she heard him yell and he was on the floor. She reported that he complained of left hip pain. And she is not sure if he hit his head. She reports recently he has had his medications changed due to agitation for dementia so he seems sleepier than usual. The provider was aware. No other complaints such as fever vomiting diarrhea. Patient has been to this ER in the past, his behavior is the same . He complains of pain to the left hip when it is palpated. TRAVEL OUTSIDE OF THE [place] IN LAST 30 DAYS: No - HPI Onset: Just prior to arrival Onset/Duration: Sudden Quality of pain: Other - yells out when hip palpated Associated symptoms: None Exacerbated by: Denies Relieved by: Denies Similar symptoms previously: No Recently seen / treated by doctor: No - Related Data Allergies/Adverse Reactions: No Known Allergies Allergy (Verified 02/11/17 19:36) Past Medical History - General Information source: Emergency Med Personnel, Outside Facility Records - Social History Smoking Status: Unknown if Ever Smoked Cigarette use (# per day): No Frequency of alcohol use: None Drug Abuse: None Lives with: [facility] Family History: Reviewed & Not Pertinent Patient has suicidal ideation: No Patient has homicidal ideation: No - Past Medical History Cardiac Medical History: Reports: Hx Hypercholesterolemia, Hx Hypertension Pulmonary Medical History: Denies: Hx Tuberculosis Endocrine Medical History: Reports: Hx Diabetes Mellitus Type 1, Hx Diabetes Mellitus Type 2 Renal/ Medical History: Denies: Hx Peritoneal Dialysis Psychiatric Medical History: Reports: Hx Dementia, Hx Schizophrenia Past Surgical History: Reports: Hx Orthopedic Surgery - foot surgery - Immunizations Hx Diphtheria, Pertussis, Tetanus Vaccination: Yes Review of Systems - Review of Systems Notes: Review HPI for review of systems., All other systems negative Physical Exam - Vital signs Vitals: Resp Pulse Ox 14 100 05/01/18 09:45 05/01/18 09:45 - General General appearance: Alert In distress: None - HEENT Head: Normocephalic Eyes: Normal Extraocular movements intact: Yes Nasal: Normal Mucous membranes: Moist Neck: Normal - Respiratory Respiratory status: No respiratory distress. No: Respiratory distress Chest status: Nontender. No: Tender, Ecchymosis, Accessory muscle use Breath sounds: Normal. No: Decreased air movement Chest palpation: Normal. No: Flail segment, Jaguas frothy sputum, Sucking chest wound - Cardiovascular Rhythm: Regular Heart sounds: Normal auscultation - Abdominal Inspection: Normal Distension: No distension. No: Distended Bowel sounds: Normal Tenderness: Nontender. No: Tender Organomegaly: No organomegaly - Back Back: Normal, Nontender. No: Vertebra tenderness - Extremities General upper extremity: Nontender, Normal color, Normal ROM General lower extremity: Normal color, Normal ROM Hip: Tender - pain with palpation, no obvious deformity. No: Abrasion, Ecchymosis, Instability, Pain with ROM - Neurological Acra Coma Scale Eye Opening: Spontaneous - Psychological Associated symptoms: Normal affect - Skin Skin Temperature: Warm Skin Moisture: Dry Skin Color: Normal Course - Re-evaluation Re-evalutation: 05/01/18 09:49 I contacted Geri to [facility] at the [facility] for report. 05/01/18 11:23 CT and hip x-ray negative. Patient will be returned to the [facility]. 05/01/18 14:00 Only transport was here attempted to set patient up to put him in a wheelchair to take him back to the [facility] patient is too sleepy. We will need a stretcher. - Vital Signs Vital signs: Temp Pulse Resp BP Pulse Ox 8 L 122/63 92 05/01/18 09:46 05/01/18 09:46 05/01/18 09:46 - Diagnostic Test Radiology reviewed: Image reviewed, Reports reviewed - EXAM DESCRIPTION: CT HEAD WITHOUT COMPLETED DATE/TIME: 05/01/2018 10:07 am REASON FOR STUDY: FELL HIT HEAD COMPARISON: 09/06/2015. TECHNIQUE: Axial images acquired through the brain without intravenous contrast. Images reviewed with bone, brain and subdural windows. Additional sagittal and coronal reconstructions were generated. Images stored on PACS. All CT scanners at this facility use dose modulation, iterative reconstruction, and/or weight based dosing when appropriate to reduce radiation dose to as low as reasonably achievable (ALARA). [facility]: Dose Right [facility]: CareDose [facility]: Dose Right [facility]: Teradose 4D [facility]: Mogreet RADIATION DOSE: CT Rad equipment meets quality standard of care and radiation dose reduction techniques were employed. CTDIvol: 55.2 mGy. DLP: 1084 mGy-cm. mGy. LIMITATIONS: None. FINDINGS: VENTRICLES: Prominent. CEREBRUM: No masses. No hemorrhage. No midline shift. Areas of low density in the white matter most likely due to chronic micro-vascular ischemic change. No evidence for acute infarction. CEREBELLUM: No masses. No hemorrhage. No alteration of density. No evidence for acute infarction. EXTRAAXIAL SPACES: Mild age-related involutional change. No fluid collections. No masses. ORBITS AND GLOBE: No intra- or extraconal masses. Normal contour of globe without masses. CALVARIUM: No fracture. PARANASAL SINUSES: Mucosal nodules in the maxillary sinuses. No fluid. SOFT TISSUES: No mass or hematoma. OTHER: No other significant finding. IMPRESSION: MILD CHRONIC CHANGES OF ATROPHY AND MICROVASCULAR ISCHEMIA. NO ACUTE PROCESS. EVIDENCE OF ACUTE STROKE: NO. COMPARISON: None. NUMBER OF VIEWS: Two views. TECHNIQUE: AP pelvis and additional frog-leg view of the left hip. LIMITATIONS: None. FINDINGS: MINERALIZATION: Normal. LEFT HIP: No fracture or dislocation. No worrisome bone lesions. RIGHT HIP: No fracture or dislocation. No worrisome bone lesions. PUBIS AND ISCHIUM: No fracture. PELVIS: No fracture. SACRUM: No fracture or dislocation. No worrisome bone lesions. LOWER LUMBAR SPINE: No fracture or dislocation. No worrisome bone lesions. No significant disc disease. SOFT TISSUES: No findings. OTHER: No other significant finding. IMPRESSION: NEGATIVE STUDY OF THE LEFT HIP AND PELVIS. NO RADIOGRAPHIC EVIDENCE OF ACUTE INJURY. Discharge - Discharge Clinical Impression: Left hip pain Fall Qualifiers: Encounter type: initial encounter Qualified Code(s): W19.XXXA - Unspecified fall, initial encounter Condition: Stable Dis[facility] Instructions: Use of Rblj-Upl-Sdmugat Ibuprofen ([facility]) Additional Instructions: *You have been evaluated post fall for hip pain *Your CT and xray were negative for an acute fracture *Follow up with your primary care provider within one week for recheck Take ibuprofen as indicated for pain. *Return to ED for worsening condition, changes, needs Referrals: MARICARMEN FLOYD ND [Primary Care Provider] - Follow up in 1 week
--- NOTE | 2018-05-01 10:18 | RADIOLOGY REPORT (SQ) ---
EXAM DESCRIPTION: CT HEAD WITHOUT COMPLETED DATE/TIME: 05/01/2018 10:07 am REASON FOR STUDY: FELL HIT HEAD COMPARISON: 09/06/2015. TECHNIQUE: Axial images acquired through the brain without intravenous contrast. Images reviewed wi th bone, brain and subdural windows. Additional sagittal and coronal reconstructions were generated. Images stored on PACS. All CT scanners at this facility use dose modulation, iterative reconstruction, and/or weight based d osing when appropriate to reduce radiation dose to as low as reasonably achievable (ALARA). [facility]: Dose Right [facility]: CareDose [facility]: Dose Right [facility]: Teradose 4D [facility]: Ritot RADIATION DOSE: CT Rad equipment meets quality standard of care and radiation dose reduction techniq ues were employed. CTDIvol: 55.2 mGy. DLP: 1084 mGy-cm. mGy. LIMITATIONS: None. FINDINGS: VENTRICLES: Prominent. CEREBRUM: No masses. No hemorrhage. No midline shift. Areas of low density in the white matter mos t likely due to chronic micro-vascular ischemic change. No evidence for acute infarction. CEREBELLUM: No masses. No hemorrhage. No alteration of density. No evidence for acute infarction. EXTRAAXIAL SPACES: Mild age-related involutional change. No fluid collections. No masses. ORBITS AND GLOBE: No intra- or extraconal masses. Normal contour of globe without masses. CALVARIUM: No fracture. PARANASAL SINUSES: Mucosal nodules in the maxillary sinuses. No fluid. SOFT TISSUES: No mass or hematoma. OTHER: No other significant finding. IMPRESSION: MILD CHRONIC CHANGES OF ATROPHY AND MICROVASCULAR ISCHEMIA. NO ACUTE PROCESS. EVIDENCE OF ACUTE STROKE: NO. TECHNICAL DOCUMENTATION: JOB ID: [id number] Quality ID # [id number]: Final reports with documentation of one or more dose reduction techniques (e.g., Au tomated exposure control, adjustment of the mA and/or kV according to patient size, use of iterative reconstruction technique) 2010 [employer]- All Rights Reserved Reading location - IP/workstation name: [email or web address]
--- NOTE | 2018-05-01 10:46 | RADIOLOGY REPORT (SQ) ---
EXAM DESCRIPTION: HIP LEFT AP/LATERAL COMPLETED DATE/TIME: 05/01/2018 10:24 am REASON FOR STUDY: FALL, HIT HEAD AND C/O LEFT HIP PAIN COMPARISON: None. NUMBER OF VIEWS: Two views. TECHNIQUE: AP pelvis and additional frog-leg view of the left hip. LIMITATIONS: None. FINDINGS: MINERALIZATION: Normal. LEFT HIP: No fracture or dislocation. No worrisome bone lesions. RIGHT HIP: No fracture or dislocation. No worrisome bone lesions. PUBIS AND ISCHIUM: No fracture. PELVIS: No fracture. SACRUM: No fracture or dislocation. No worrisome bone lesions. LOWER LUMBAR SPINE: No fracture or dislocation. No worrisome bone lesions. No significant disc disea se. SOFT TISSUES: No findings. OTHER: No other significant finding. IMPRESSION: NEGATIVE STUDY OF THE LEFT HIP AND PELVIS. NO RADIOGRAPHIC EVIDENCE OF ACUTE INJURY. TECHNICAL DOCUMENTATION: JOB ID: [id number] [employer]- All Rights Reserved Reading location - IP/workstation name: [email or web address]
[2018-05-01 16:19] VITALS: BP 177/80
== END 2018-05-01 16:19 ==
LOC: ER 09:17
DX: M25.552 Pain in left hip (principal); W18.30XA Fall on same level, unspecified, initial encounter; Y92.129 Unspecified place in nursing home as the place of occurrence of the external cause; E78.00 Pure hypercholesterolemia, unspecified; I10 Essential (primary) hypertension; E11.9 Type 2 diabetes mellitus without complications
CPT/HCPCS: 70450; 99285

== ENCOUNTER 2018-05-09 23:50 | Emergency (ER) | payer MEDICARE, MEDICAID ==
[2018-05-10] MEDS ORDERED: METOCLOPRAMIDE HCL INJ/PF 10 MG/2 ML SDV IV ONE (00:16)
[2018-05-10] MEDS ORDERED: RINGERS SOLUTION,LACTATED 1,000 ML IV ONE (00:17)
--- NOTE | 2018-05-10 00:18 | ER Document Report ---
ED General - General Chief Complaint: Fall Stated Complaint: VOMITING Time Seen by Provider: 05/10/18 00:08 Cannot obtain history due to: Dementia Notes: Patient is a 73-year-old male who was referred to the emergency department by his nursing facility due to concerns that he fell out of his bed. This was an unwitnessed fall, patient was found on the ground. Staff became concerned and patient vomited on multiple occasions. He was referred to the emergency department by EMS for further assessment. History is otherwise limited secondary to the patient's profound dementia TRAVEL OUTSIDE OF THE [place] IN LAST 30 DAYS: No - Related Data Allergies/Adverse Reactions: No Known Allergies Allergy (Verified 02/11/17 19:36) Past Medical History - General Information source: Emergency Med Personnel Cannot obtain history due to: Dementia - Social History Smoking Status: Unknown if Ever Smoked Frequency of alcohol use: None Drug Abuse: None Lives with: [facility] Family History: Reviewed & Not Pertinent - Past Medical History Cardiac Medical History: Reports: Hx Hypercholesterolemia, Hx Hypertension Pulmonary Medical History: Denies: Hx Tuberculosis Endocrine Medical History: Reports: Hx Diabetes Mellitus Type 1, Hx Diabetes Mellitus Type 2 Renal/ Medical History: Denies: Hx Peritoneal Dialysis Psychiatric Medical History: Reports: Hx Dementia, Hx Schizophrenia Past Surgical History: Reports: Hx Orthopedic Surgery - foot surgery - Immunizations Hx Diphtheria, Pertussis, Tetanus Vaccination: Yes Review of Systems - Review of Systems -: Yes ROS unobtainable due to patient's medical condition Physical Exam - Vital signs Vitals: Resp BP Pulse Ox 32 H 159/120 H 96 05/09/18 23:53 05/09/18 23:53 05/09/18 23:53 Interpretation: Hypertensive Notes: PHYSICAL EXAMINATION: GENERAL: Elderly, acting in a similar manner to previous presentations. Irregular breathing pattern. HEAD: Atraumatic, normocephalic. EYES: Pupils equal round and reactive to light, extraocular movements intact, sclera anicteric, conjunctiva are normal. ENT: nares patent, no oral pharyngeal trauma. No hemotympanum, no Alanis's sign, no raccoon eyes. NECK: No midline cervical spine tenderness. LUNGS: Breath sounds clear to auscultation bilaterally and equal. Highly irregular, gasping breathing pattern that is the patient's baseline HEART: Regular rate and rhythm without murmurs. CHEST WALL: No ecchymosis over the chest wall. ABDOMEN: Soft, nontender, normoactive bowel sounds. No guarding, no rebound. No abdominal bruising EXTREMITIES: no pitting or edema. No long bone deformities. NEUROLOGICAL: Moving all extremities spontaneously, equal motion throughout PSYCH: Nonverbal SKIN: Warm, Dry, normal turgor, no rashes or lesions noted. Course - Re-evaluation Re-evalutation: 05/10/18 00:17 Patient presents after apparently falling out of his bed at the nursing facility and then subsequent developing vomiting. Patient is nonverbal, unable to provide meaningful history. Patient appears very similar to when I have seen him in the past. He is actively vomiting here in the emergency department. No evidence of trauma on exam. Will proceed with CT of the head and cervical spine. Also obtain basic laboratories and provide antiemetics. Of note the paramedics report that the patient apparently has been transitioned to hospice although is still a full code. No family available for consultation 05/10/18 02:23 CT the head without any evidence of intracranial bleed. Labs unremarkable with exception of hyperglycemia. Patient's episodes of nausea and vomiting have resolved. It is possible the patient has developed an acute concussion resulting in episodes of nausea and vomiting after falling. He has no focal abdominal tenderness on exam. At this point I do not see an indication for CT imaging of the abdomen and pelvis. At this time will discharge with return precautions and follow-up recommendations. - Vital Signs Vital signs: Temp Pulse Resp BP Pulse Ox 98 F 20 188/95 H 96 05/10/18 02:43 05/10/18 00:11 05/10/18 00:11 05/10/18 00:11 - Laboratory Result Diagrams: 05/10/18 00:00 05/10/18 00:00 Laboratory results interpreted by me: 05/10/18 05/10/18 00:00 00:00 RDW 14.8 H Plt Count 85 L Chloride 109 H BUN 23 H Glucose 259 H Calcium 10.4 H Lipase 20.8 L - Diagnostic Test Radiology reviewed: Image reviewed, Reports reviewed Radiology results interpreted by me: 05/10/18 02:23 CT head: No acute intracranial bleed or mass. Discharge - Discharge Clinical Impression: Dementia Qualifiers: Dementia type: unspecified type Dementia behavioral disturbance: with behavioral disturbance Qualified Code(s): F03.91 - Unspecified dementia with behavioral disturbance Fall Qualifiers: Encounter type: initial encounter Qualified Code(s): W19.XXXA - Unspecified fall, initial encounter Nausea and vomiting Qualifiers: Vomiting type: unspecified Vomiting Intractability: non-intractable Qualified Code(s): R11.2 - Nausea with vomiting, unspecified Condition: Good Disposition: HOME, SELF-CARE Additional Instructions: CT scan of the patient's head is normal. Labs show high blood sugar but are otherwise unremarkable. Return for any additional concerns including continued vomiting, somnolence, or any additional concerns. Referrals: MARICARMEN FLOYD ND [Primary Care Provider] - Follow up as needed
[2018-05-10 00:44] LABS: ALANINE AMINOTRANSFERASE 40 U/L (21-72); ALBUMIN 4.2 g/dL (3.5-5.0); ALKALINE PHOSPHATASE 89 U/L (38-126); ANION GAP 8 (5-19); ASPARTATE AMINO TRANSFERASE 46 U/L (17-59); BILIRUBIN,DIRECT 0.2 mg/dL (0.0-0.4); BILIRUBIN,TOTAL 0.7 mg/dL (0.2-1.3); BLOOD UREA NITROGEN 23 mg/dL (7-20); CALCIUM 10.4 mg/dL (8.4-10.2); CARBON DIOXIDE 24 mmol/L (22-30); CHLORIDE 109 mmol/L (98-107); GLUCOSE 259 mg/dL (75-110); LIPASE 20.8 U/L (23-300); POTASSIUM 3.8 mmol/L (3.6-5.0); SODIUM 140.6 mmol/L (137-145); TOTAL PROTEIN 7.3 g/dL (6.3-8.2)
[2018-05-10] MEDS ORDERED: HALOPERIDOL LACTATE INJ 5 MG/1 ML VIAL IV ONE (00:48)
[2018-05-10] MEDS ORDERED: MIDAZOLAM 2 MG/2 ML INJ IV ONE (00:57)
[2018-05-10 01:01] LABS: HEMATOCRIT 43.8 % (37.9-51.0); HEMOGLOBIN 14.8 g/dL (13.5-17.0); MEAN CORPUSCULAR HEMOGLOBIN 31.3 pg (27.0-33.4); MEAN CORPUSCULAR HGB CONC 33.8 g/dL (32.0-36.0); MEAN CORPUSCULAR VOLUME 93 fl (80-97); RED BLOOD COUNT 4.73 10^6/uL (4.35-5.55); RED CELL DISTRIBUTION WIDTH 14.8 % (11.5-14.0); WHITE BLOOD COUNT 7.1 10^3/uL (4.0-10.5)
--- NOTE | 2018-05-10 01:15 | RADIOLOGY REPORT (SQ) ---
EXAM DESCRIPTION: CT HEAD WITHOUT IV CONTRAST COMPLETED DATE/TME: 05/10/2018 00:16 CLINICAL HISTORY: 73 years Male, fall, vomiting COMPARISON: 09/06/15 TECHNIQUE: No contrast. This exam was performed according to our departmental dose-optimization program, which includes automated exposure control, adjustment of the mA and/or kV according to patient size and/or use of iterative reconstruction technique. Limitation: Significant motion. FINDINGS: No hemorrhage or infarct. No mass, mass effect, or midline shift. Atherosclerosis. Moderate bilateral maxillary mucosal thickening. Brain and extra-axial structures appear otherwise intact. IMPRESSION: No acute findings. Limitation.
[2018-05-10 01:27] LABS: PLATELET COUNT 85 10^3/uL (150-450)
[2018-05-10 03:40] VITALS: BP 117/69
== END 2018-05-10 03:35 | disposition home or self-care (01) ==
LOC: ER 23:50
DX: Z04.3 Encounter for examination and observation following other accident (principal); R11.2 Nausea with vomiting, unspecified; E11.65 Type 2 diabetes mellitus with hyperglycemia; R06.89 Other abnormalities of breathing; F03.91 Unspecified dementia, unspecified severity, with behavioral disturbance; I10 Essential (primary) hypertension
CPT/HCPCS: 99285; 96361; 96374; 96375; 36415; 83690; 85027; 80053; 84484; 70450; J2250; J1630; J2765; J7120

== ENCOUNTER 2018-05-19 08:04 | Inpatient (IN) | payer MEDICARE, MEDICAID ==
[2018-05-19] MEDS ORDERED: NORMAL SALINE 1000 ML 1,000 ML IV ONE ×8 (08:20→18:45)
[2018-05-19] MEDS ORDERED: VANCOMYCIN HCL INJ 1000 MG VIAL IV ONE (08:20)
[2018-05-19] MEDS ORDERED: PIPERACILLIN/TAZOBACTAM 3.375 GM VIAL IV ONE (08:22)
--- NOTE | 2018-05-19 08:29 | ER Document Report ---
ED Fever - General Stated Complaint: UNRESPONSIVE Time Seen by Provider: 05/19/18 08:20 Primary Care Provider: MARICARMEN FLOYD ND [Primary Care Provider] - Follow up as needed Notes: 73-year-old male with history of Alzheimer's disease presents to the ER via EMS unresponsive. According to the half-way the patient has been having a gradu al decrease in mental status over the last several days. They noticed a fever of 103 this morning. The patient was unresponsive this morning EMS was activated EMS brought the patient in bagging the patient for the sats would fall into the 70s and 80s if not. The patient is completely unconscious and cannot provide a history. prison states the guarding of the patient is DSS and the family is in court this morning with DSS to try to get the patient to be a comfort care DO NOT RESUSCITATE. Currently nothing is been decided the patient is a full code at this time. TRAVEL OUTSIDE OF THE [place] IN LAST 30 DAYS: No - Related Data Allergies/Adverse Reactions: No Known Allergies Allergy (Verified 02/11/17 19:36) Past Medical History - Social History Smoking Status: Unknown if Ever Smoked Family History: Reviewed & Not Pertinent - Past Medical History Cardiac Medical History: Reports: Hx Hypercholesterolemia, Hx Hypertension Pulmonary Medical History: Denies: Hx Tuberculosis Endocrine Medical History: Reports: Hx Diabetes Mellitus Type 1, Hx Diabetes Mellitus Type 2 Renal/ Medical History: Denies: Hx Peritoneal Dialysis Psychiatric Medical History: Reports: Hx Dementia, Hx Schizophrenia Past Surgical History: Reports: Hx Orthopedic Surgery - foot surgery - Immunizations Hx Diphtheria, Pertussis, Tetanus Vaccination: Yes Review of Systems - Review of Systems -: Yes ROS unobtainable due to patient's medical condition Physical Exam - Vital signs Vitals: Resp Pulse Ox 28 H 94 05/19/18 08:10 05/19/18 08:10 - Notes Notes: GENERAL_APPEARANCE: Chronically ill-appearing, obtunded VITALS: reviewed, see vital signs table. HEAD: no_swelling on the head. EYES: PERRL, EOMI, conjunctiva_clear. NOSE: no_nasal_discharge. MOUTH: Very dry mucous membranes with dried vomit in the oropharynx THROAT: no_throat_inflammation, no_airway_obstruction. no_lymphadenopathy NECK: supple, (-)thyromegaly. CHEST_WALL: No crepitus no subcutaneous emphysema LUNGS: no_wheezing, no_rales, bilateral_rhonchi, (-)accessory muscle use, good air exchange bilateral. HEART: Rapid rate, normal_rhythm, normal_S1, normal_S2, (-)S3, (-)S4, no_murmur, no_rub. ABDOMEN: soft, no_abd_tenderness, (-)guarding, (-)rebound, no_organomegaly, no_ abd_masses. EXTREMITIES: good pulses in all_extremities, no_swelling\tenderness in the extremities, no_edema. SKIN: Pale dry cool extremities MENTAL_STATUS: Withdraws to pain will not respond to verbal NEURO: Withdraws to pain in all 4 extremities, extraocular movements appear intact pupils equal reactive, cranial nerves II through XII appear intact deep tendon reflex symmetric x4 Course - Re-evaluation Re-evalutation: 05/19/18 08:32 73-year-old male presents to the ER unresponsive with low sats appears to have aspirated. The patient was intubated for airway protection. In the airway there was dried vomit in the posterior oral fornix which looks to have been aspirated quite a long time ago. Mucous membranes are very dry. The patient has a rapid heart rate which is likely reflex tachycardia due to sepsis she is a fever 103. Were doing full sepsis workup. There is a court cole going on this morning between DSS and the family. It is unclear who wants DNR and who does not. Patient is obviously chronically ill and is extraordinarily dehydrated septic. We will work him up. Hospice nurse did show up but states the patient is DNR. Again it is not clear exactly the patient's CODE STATUS so we are doing everything until we have a more clear picture. We can always withdraw care later if needed. 05/19/18 10:29 Patient is very dehydrated. Patient has acute kidney injury with elevated BUN and creatinine. Were resuscitating him with plenty of fluid. Heart rate is elevated which is read as SVT on the monitor. We will try dose of adenosine. 05/19/18 11:57 We are continuing aggressive IV fluids patient is starting to make urine. We also tried a dose of amiodarone I think he is in atrial fib. I spoke with the hospitalist about hospitalization. - Vital Signs Vital signs: Temp Pulse Resp BP Pulse Ox 17 111/95 H 96 05/19/18 10:50 05/19/18 10:50 05/19/18 10:50 - Laboratory Result Diagrams: 05/19/18 08:20 05/19/18 08:20 Laboratory results interpreted by me: 05/19/18 05/19/18 05/19/18 08:20 08:20 08:20 RDW 15.8 H Plt Count 55 L Band Neutrophils % 11 H PT 19.2 H VBG pH VBG HCO3 Sodium 161.6 H Chloride 126 H Carbon Dioxide 17 L BUN 72 H Creatinine 4.98 H Est GFR ( Amer) 14 L Est GFR (Non-Af Amer) 11 L Glucose 523 H* Lactic Acid Total Bilirubin 1.4 H Direct Bilirubin 0.8 H AST 61 H Creatine Kinase 1280 H Urine Protein Urine Glucose (UA) Urine Blood Urine Bilirubin Urine Urobilinogen Ur Leukocyte Esterase 05/19/18 05/19/18 05/19/18 08:20 08:20 08:20 RDW Plt Count Band Neutrophils % PT VBG pH 7.20 L VBG HCO3 16.3 L Sodium Chloride Carbon Dioxide BUN Creatinine Est GFR ( Amer) Est GFR (Non-Af Amer) Glucose Lactic Acid 4.7 H Total Bilirubin Direct Bilirubin AST Creatine Kinase Urine Protein 30 H Urine Glucose (UA) 50 H Urine Blood MODERATE H Urine Bilirubin SMALL H Urine Urobilinogen 4.0 H Ur Leukocyte Esterase LARGE H - Diagnostic Test Radiology reviewed: Reports reviewed Radiology results interpreted by me: 05/19/18 10:29 Chest X-Ray 05/19/18 08:20 IMPRESSION: 1. Endotracheal tube is positioned with tip below the thoracic inlet. 2. Esophagogastric tube within the right lower lobe bronchial system on images 1 and 2 and has been removed in image labeled 3 of 3. 3. No acute abnormality of the lungs. 4. Gas distended bowel in the upper abdomen. Head CT 05/19/18 08:21 IMPRESSION: MILD CHRONIC CHANGES OF ATROPHY AND MICROVASCULAR ISCHEMIA. NO ACUTE PROCESS. EVIDENCE OF ACUTE STROKE: NO. Procedures - Intubation Orotracheal Airway evaluation: Normal anatomy Mallampati Classification: Class 2 Medications: Etomidate, Vecuronium Intubation method: Orotracheal Blade type: Jhon Blade size: 4 Equipment used: Glidescope ETT size: 8.0 ETT secured at: Lips ETT secured at (cm): 23 Breath Sounds after Intubation: Equal End tidal CO2 confirmed: Yes Critical Care Note - Critical Care Note Total time excluding time spent on procedures (mins): 40 Discharge - Discharge Clinical Impression: Sepsis Qualifiers: Sepsis type: sepsis due to unspecified organism Qualified Code(s): A41.9 - Sepsis, unspecified organism UTI (urinary tract infection) Qualifiers: Urinary tract infection type: acute cystitis Hematuria presence: without hematuria Qualified Code(s): N30.00 - Acute cystitis without hematuria Aspiration into airway Qualifiers: Encounter type: initial encounter Qualified Code(s): T17.908A - Unspecified foreign body in respiratory tract, part unspecified causing other injury, initi al encounter Condition: Critical Disposition: ADMITTED INPATIENT Admitting Provider: Hospitalist Unit Admitted: ICU Referrals: MARICARMEN FLOYD ND [Primary Care Provider] - Follow up as needed
[2018-05-19 08:46] LABS: VENOUS BLOOD BASE EXCESS -11.4 mmol/L; VENOUS BLOOD HCO3 16.3 mmol/L (20-32); VENOUS BLOOD PCO2 43.1 mmHg (35-63); VENOUS BLOOD PH 7.2 (7.30-7.42)
[2018-05-19 08:56] LABS: HEMATOCRIT 46.6 % (37.9-51.0); HEMOGLOBIN 15.5 g/dL (13.5-17.0); MEAN CORPUSCULAR HEMOGLOBIN 31.4 pg (27.0-33.4); MEAN CORPUSCULAR HGB CONC 33.3 g/dL (32.0-36.0); MEAN CORPUSCULAR VOLUME 94 fl (80-97); RED BLOOD COUNT 4.94 10^6/uL (4.35-5.55); RED CELL DISTRIBUTION WIDTH 15.8 % (11.5-14.0); WHITE BLOOD COUNT 10.1 10^3/uL (4.0-10.5)
[2018-05-19 09:01] LABS: INTERNATIONAL RATION (INR) 1.54; PROTHROMBIN TIME 19.2 SEC (11.4-15.4)
[2018-05-19] MEDS ORDERED: ACETAMINOPHEN 650 MG SUPP.RECT PR ONE (09:03)
[2018-05-19 09:07] LABS: ALANINE AMINOTRANSFERASE 30 U/L (21-72); ALBUMIN 3.6 g/dL (3.5-5.0); ALKALINE PHOSPHATASE 77 U/L (38-126); ASPARTATE AMINO TRANSFERASE 61 U/L (17-59); BILIRUBIN,DIRECT 0.8 mg/dL (0.0-0.4); BILIRUBIN,TOTAL 1.4 mg/dL (0.2-1.3); BLOOD UREA NITROGEN 72 mg/dL (7-20); CALCIUM 10.1 mg/dL (8.4-10.2); CREATINE KINASE 1280 U/L (55-170); POTASSIUM 3.7 mmol/L (3.6-5.0); TOTAL PROTEIN 6.7 g/dL (6.3-8.2)
[2018-05-19 09:12] LABS: ANION GAP 19 (5-19); CARBON DIOXIDE 17 mmol/L (22-30); CHLORIDE 126 mmol/L (98-107); SODIUM 161.6 mmol/L (137-145)
[2018-05-19 09:16] LABS: GLUCOSE 523 mg/dL (75-110)
[2018-05-19] MEDS ORDERED: PROPOFOL INJ 200 MG/20 ML VIAL IV ONE (09:17)
--- NOTE | 2018-05-19 09:25 | RADIOLOGY REPORT (SQ) ---
EXAM DESCRIPTION: CHEST SINGLE VIEW COMPLETED DATE/TIME: 05/19/2018 9:14 am REASON FOR STUDY: resp failure/et tube/ng tube COMPARISON: 04/22/2018 EXAM PARAMETERS: NUMBER OF VIEWS: One view, 3 sequential images. TECHNIQUE: Single frontal radiographic view of the chest acquired. RADIATION DOSE: NA LIMITATIONS: None. FINDINGS: LUNGS AND PLEURA: No opacities, masses or pneumothorax. No pleural effusion. MEDIASTINUM AND HILAR STRUCTURES: No masses. Contour normal. HEART AND VASCULAR STRUCTURES: Heart normal in size. Normal vasculature. BONES: No acute findings. HARDWARE: None in the chest. OTHER: Endotracheal tube is positioned with tip below the thoracic inlet. Esophagogastric tube withi n the right lower lobe bronchial system on images 1 and 2 and has been removed in image labeled 3 of 3. Gas distended bowel in the upper abdomen. IMPRESSION: 1. Endotracheal tube is positioned with tip below the thoracic inlet. 2. Esophagogastric tube within the right lower lobe bronchial system on images 1 and 2 and has been r emoved in image labeled 3 of 3. 3. No acute abnormality of the lungs. 4. Gas distended bowel in the upper abdomen. TECHNICAL DOCUMENTATION: JOB ID: [id number] [employer]- All Rights Reserved Reading location - IP/workstation name: [email or web address]
[2018-05-19] MEDS ORDERED: ROCURONIUM BROMIDE INJ 50 MG/5 ML VIAL IV ONE ×2 (09:29→19:29)
[2018-05-19] MEDS ORDERED: ETOMIDATE INJ/PF 20 MG/10 ML SDV IV ONE (09:29)
[2018-05-19 09:31] LABS: AMORPHOUS SEDIMENT,URINE TRACE /HPF; APPEARANCE,URINE CLOUDY; BILIRUBIN,URINE SMALL (NEGATIVE); COLOR,URINE DARK YELLOW; GLUCOSE, URINE 50 mg/dL (NEGATIVE); KETONES,URINE NEGATIVE (NEGATIVE); LEUKOCYTE ESTERASE,URINE LARGE (NEGATIVE); NITRITE,URINE NEGATIVE (NEGATIVE); PROTEIN,URINE 30 mg/dL (NEGATIVE)
[2018-05-19 09:38] LABS: BASOPHILS % (MANUAL) 0 % (0-2); EOSINOPHILS % (MANUAL) 0 % (0-6); TOTAL CELLS COUNTED 100
[2018-05-19 09:47] LABS: ANISOCYTOSIS 1+; HYPOCHROMASIA SLIGHT; PLATELET COMMENT DECREASED; POLYCHROMASIA SLIGHT
[2018-05-19 09:55] LABS: ABSOLUTE LYMPHOCYTES# (MANUAL) 1.6 10^3/uL (0.5-4.7); ABSOLUTE MONOCYTES # (MANUAL) 0.3 10^3/uL (0.1-1.4); ABSOLUTE NEUTROPHILS# (MANUAL) 8.2 10^3/uL (1.7-8.2); BAND NEUTROPHILS % (MANUAL) 11 % (3-5); LYMPHOCYTES % (MANUAL) 16 % (13-45); MONOCYTES % (MANUAL) 3 % (3-13); SEGMENTED NEUTROPHILS % (MAN) 70 % (42-78)
[2018-05-19 09:56] LABS: TOXIC GRANULATION SLIGHT; TOXIC VACUOLATION PRESENT
[2018-05-19 09:57] LABS: PLATELET LARGE PRESENT
[2018-05-19 09:58] LABS: PLATELET COUNT 55 10^3/uL (150-450)
--- NOTE | 2018-05-19 10:08 | RADIOLOGY REPORT (SQ) ---
EXAM DESCRIPTION: CT HEAD WITHOUT COMPLETED DATE/TIME: 05/19/2018 10:00 am REASON FOR STUDY: AMS COMPARISON: None. TECHNIQUE: Axial images acquired through the brain without intravenous contrast. Images reviewed wi th bone, brain and subdural windows. Additional sagittal and coronal reconstructions were generated. Images stored on PACS. All CT scanners at this facility use dose modulation, iterative reconstruction, and/or weight based d osing when appropriate to reduce radiation dose to as low as reasonably achievable (ALARA). [facility]: Dose Right [facility]: CareDose [facility]: Dose Right [facility]: Teradose 4D [facility]: Switchfly RADIATION DOSE: CT Rad equipment meets quality standard of care and radiation dose reduction techniq ues were employed. CTDIvol: 53.2 mGy. DLP: 991 mGy-cm. mGy. LIMITATIONS: None. FINDINGS: VENTRICLES: Prominent. CEREBRUM: No masses. No hemorrhage. No midline shift. Areas of low density in the white matter mos t likely due to chronic micro-vascular ischemic change. No evidence for acute infarction. CEREBELLUM: No masses. No hemorrhage. No alteration of density. No evidence for acute infarction. EXTRAAXIAL SPACES: Mild age-related involutional change. No fluid collections. No masses. ORBITS AND GLOBE: No intra- or extraconal masses. Normal contour of globe without masses. CALVARIUM: No fracture. PARANASAL SINUSES: No fluid or mucosal thickening. SOFT TISSUES: No mass or hematoma. OTHER: No other significant finding. IMPRESSION: MILD CHRONIC CHANGES OF ATROPHY AND MICROVASCULAR ISCHEMIA. NO ACUTE PROCESS. EVIDENCE OF ACUTE STROKE: NO. TECHNICAL DOCUMENTATION: JOB ID: [id number] Quality ID # [id number]: Final reports with documentation of one or more dose reduction techniques (e.g., Au tomated exposure control, adjustment of the mA and/or kV according to patient size, use of iterative reconstruction technique) 2010 [employer]- All Rights Reserved Reading location - IP/workstation name: [email or web address]
[2018-05-19] MEDS ORDERED: ADENOSINE INJ/PF 6 MG/2 ML SDV IV ONE ×2 (10:26)
[2018-05-19] MEDS ORDERED: AMIODARONE HCL 150 MG in DEXTROSE 5%-WATER 100 ML IV ONE (11:05)
[2018-05-19] MEDS ORDERED: AMIODARONE HCL INJ 150 MG/3 ML VIAL IV ONE ×2 (11:54→12:00)
[2018-05-19] MEDS ORDERED: SODIUM BICARBONATE 8.4% INJ 50 MEQ/50 ML DISP.SYRIN ONE (12:41)
[2018-05-19] MEDS ORDERED: EPINEPHRINE INJ 1 MG/10 ML DISP.SYRIN ONE (12:41)
[2018-05-19] MEDS ORDERED: GLUCAGON,HUMAN RECOMB 1 MG INJ IM PRN (15:32)
[2018-05-19] MEDS ORDERED: DEXTROSE 50%-WATER 25 GM/50 ML DISP.SYRIN IV PRN ×2 (15:32)
[2018-05-19] MEDS ORDERED: DEXTROSE 40% GEL 15 GM TUBE PO PRN ×2 (15:32)
--- NOTE | 2018-05-19 15:44 | PDOC H&P ---
History of Present Illness Admission Date/PCP: 05/19/18 12:36 MARICARMEN FLOYD ND History of Present Illness: LB KING JR is a 73 year old male who has Alzheimer's dementia and [facility]. He is a kimble of state for so many years. Apparently he has poor functional capacity at baseline and Department of social services aide had decided to make him DNR and hospice. Apparently his family are contesting this decision and there was a court date today for that. The patient is currently intubated and unconscious without any sedation. From talking to the ED staff, the patient was unresponsive for 4-5 days. He was not eating or drinking. Apparently had a fever today and was transferred to the emergency room where he was intubated. I tried to contact Roselyn Gibbs who is his chief clerk shelter and left her message. Later she called me back. Because the family is contesting the DNR and hospice, she and her supervisor backfilling are recommending full code for now. Patient is severely hypotensive. He is severely hyponatremic. He is unresponsive without sedation. His pupils are nonreactive. He received 7 L of normal saline in the emergency room and his blood pressure still low. Past Medical History Cardiac Medical History: Reports: Hyperlipidema, Hypertension Pulmonary Medical History: Denies: Tuberculosis Endocrine Medical History: Reports: Diabetes Mellitus Type 1, Diabetes Mellitus Type 2 Psychiatric Medical History: Reports: Dementia Hematology: Denies: Anemia, Sickle Cell Disease Past Surgical History Past Surgical History: Reports: Orthopedic Surgery - foot surgery Social History Smoking Status: Unknown if Ever Smoked Hx Recreational Drug Use: No Hx Prescription Drug Abuse: No Family History Family History: Other - Unknown Parental Family History Reviewed: No - Patient is intubated Children Family History Reviewed: Unknown Sibling(s) Family History Reviewed.: Unknown Medication/Allergy Home Medications: Aspirin [Aspirin EC 81 mg Tablet] 81 mg PO DAILY 11/20/11 Metoprolol Tartrate [Lopressor 25 Mg Tablet] 12.5 mg PO Q12 11/20/11 Benztropine Mesylate [Benztropine Mesylate 2 mg Tablet] 2 mg PO QHS 05/19/18 Divalproex Sodium [Depakote] 125 mg PO QHS 05/19/18 Docusate Sodium [Colace 100 mg Capsule] 100 mg PO BID 05/19/18 Finasteride [Proscar 5 mg Tablet] 5 mg PO DAILY 05/19/18 Flu Vacc [id number](65Yr Up)/Pf [Fluzone High-Dose Syr] 0.5 ml IM .RECEIVED 01/27/18 MDD 01/27/18 05/19/18 Haloperidol Lactate [Haldol Oral Soln 10 Mg/5 Ml Udcup] 1 mg PO Q4 05/19/18 Insulin Glargine,Hum.rec.anlog [Lantus Insulin Inj 300 Unit/3 ml Pen] 4 unit SUBCUT QHS 05/19/18 Insulin Lispro [Humalog Insulin 100 Unit/1 ml 3 ml Vial] 0 unit SUBCUT .SLD SCALE 05/19/18 Lisinopril [Prinivil 10 mg Tablet] 20 mg PO DAILY 05/19/18 Lorazepam [Ativan 0.5 mg Tablet] 0.5 mg PO Q3HP PRN 05/19/18 Lorazepam [Ativan 1 mg Tablet] 1 mg PO Q4 MDD SCHEDULED 05/19/18 Morphine Sulfate [Roxanol] 5 mg PO Q4 MDD SCHEDULED 05/19/18 Paroxetine HCl [Paxil] 40 mg PO DAILY 05/19/18 Allergies/Adverse Reactions: No Known Allergies Allergy (Verified 02/11/17 19:36) Review of Systems ROS unobtainable: Due to endotracheal tube, Due to mental status Physical Exam Vital Signs: Temp Pulse Resp BP Pulse Ox 98.2 F 21 H 79/39 L 91 L 05/19/18 14:42 05/19/18 14:42 05/19/18 14:42 05/19/18 14:42 Intake & Output 05/18/18 05/19/18 05/20/18 06:59 06:59 06:59 Intake Total 9900 Output Total 200 Balance 9700 Weight 188 lb 0.869 oz General appearance: PRESENT: other - Intubated. Unresponsive. Not sedated. Head exam: PRESENT: atraumatic, normocephalic Eye exam: PRESENT: other - Pupils not reactive Mouth exam: PRESENT: dry mucosa, other - NG tube drained dark fluid Neck exam: ABSENT: thyromegaly Respiratory exam: PRESENT: clear to auscultation pernell, other - Intubated Cardiovascular exam: PRESENT: tachycardia GI/Abdominal exam: PRESENT: normal bowel sounds, soft Rectal exam: PRESENT: deferred Extremities exam: ABSENT: pedal edema Neurological exam: PRESENT: other - Intubated, nonresponsive Results Laboratory Results: 05/19/18 08:20 05/19/18 08:20 05/19/18 05/19/18 05/19/18 08:20 08:20 08:20 WBC 10.1 RBC 4.94 Hgb 15.5 Hct 46.6 MCV 94 MCH 31.4 MCHC 33.3 RDW 15.8 H Plt Count 55 L Seg Neutrophils % Not Reportable Lymphocytes % Not Reportable Monocytes % Not Reportable Eosinophils % Not Reportable Basophils % Not Reportable Absolute Neutrophils Not Reportable Absolute Lymphocytes Not Reportable Absolute Monocytes Not Reportable Absolute Eosinophils Not Reportable Absolute Basophils Not Reportable VBG pH VBG pCO2 VBG HCO3 VBG Base Excess Sodium 161.6 H Potassium 3.7 Chloride 126 H Carbon Dioxide 17 L Anion Gap 19 BUN 72 H Creatinine 4.98 H Est GFR ( Amer) 14 L Est GFR (Non-Af Amer) 11 L Glucose 523 H* Lactic Acid 4.7 H Calcium 10.1 Total Bilirubin 1.4 H AST 61 H ALT 30 Alkaline Phosphatase 77 Total Protein 6.7 Albumin 3.6 Urine Color Urine Appearance Urine pH Ur Specific [place] Urine Protein Urine Glucose (UA) Urine Ketones Urine Blood Urine Nitrite Ur Leukocyte Esterase Urine WBC (Auto) Urine RBC (Auto) 05/19/18 05/19/18 05/19/18 08:20 08:20 13:07 WBC RBC Hgb Hct MCV MCH MCHC RDW Plt Count Seg Neutrophils % Lymphocytes % Monocytes % Eosinophils % Basophils % Absolute Neutrophils Absolute Lymphocytes Absolute Monocytes Absolute Eosinophils Absolute Basophils VBG pH 7.20 L VBG pCO2 43.1 VBG HCO3 16.3 L VBG Base Excess -11.4 Sodium Potassium Chloride Carbon Dioxide Anion Gap BUN Creatinine Est GFR ( Amer) Est GFR (Non-Af Amer) Glucose Lactic Acid 6.1 H Calcium Total Bilirubin AST ALT Alkaline Phosphatase Total Protein Albumin Urine Color DARK YELLOW Urine Appearance CLOUDY Urine pH 5.0 Ur Specific [place] 1.020 Urine Protein 30 H Urine Glucose (UA) 50 H Urine Ketones NEGATIVE Urine Blood MODERATE H Urine Nitrite NEGATIVE Ur Leukocyte Esterase LARGE H Urine WBC (Auto) 135 Urine RBC (Auto) 4 05/19/18 05/19/18 08:20 08:20 Creatine Kinase 1280 H Troponin I 0.250 Impressions: Chest X-Ray 05/19/18 08:20 IMPRESSION: 1. Endotracheal tube is positioned with tip below the thoracic inlet. 2. Esophagogastric tube within the right lower lobe bronchial system on images 1 and 2 and has been removed in image labeled 3 of 3. 3. No acute abnormality of the lungs. 4. Gas distended bowel in the upper abdomen. Head CT 05/19/18 08:21 IMPRESSION: MILD CHRONIC CHANGES OF ATROPHY AND MICROVASCULAR ISCHEMIA. NO ACUTE PROCESS. EVIDENCE OF ACUTE STROKE: NO. Assessment & Plan - Diagnosis (1) Respiratory failure Is this a current diagnosis for this admission?: Yes Plan: Patient is intubated. Titrate vent setting to maximize oxygenation ventilation. (2) Shock Is this a current diagnosis for this admission?: Yes Plan: Continue fluid challenge. May need pressors. Continue empiric antibiotics. Check cultures. (3) Hypernatremia Is this a current diagnosis for this admission?: Yes Plan: Due to severe hypovolemia. Continue volume rehydration. Monitor sodium levels every 4 hours. (4) Diabetes mellitus with hyperglycemia Is this a current diagnosis for this admission?: Yes Plan: Cover with insulin sliding scale every 6 hours. - Time Critical Time spent with patient: 35 or more minutes
--- NOTE | 2018-05-19 15:55 | EKG REPORT ---
SEVERITY:- ABNORMAL ECG - ATRIAL FIBRILLATION WITH RAPID V-RATE 156/MIN PROBABLE INFERIOR INFARCT, AGE INDETERMINATE CONSIDER ANTEROSEPTAL INFARCT NONSPECIFIC ST-T CHANGES ANTEROLATERAL LEADS : Confirmed by: Jaime Pryor MD 19-May-2018 15:54:39
--- NOTE | 2018-05-19 15:56 | EKG REPORT ---
SEVERITY:- ABNORMAL ECG - SUPRAVENTRICULAR TACHYCARDIA VENTRICULAR PREMATURE COMPLEX CONSIDER ANTEROSEPTAL INFARCT REPOLARIZATION ABNORMALITY, PROB RATE RELATED : Confirmed by: Jaime Pryor MD 19-May-2018 15:55:29
[2018-05-19] MEDS: PANTOPRAZOLE SODIUM 40 MG VIAL IV SCH (16:10)
--- NOTE | 2018-05-19 17:21 | RADIOLOGY REPORT (SQ) ---
EXAM DESCRIPTION: KUB/ABDOMEN (SINGLE VIEW) COMPLETED DATE/TIME: 05/19/2018 5:00 pm REASON FOR STUDY: stool coming out NG. Check for bowel obstruction COMPARISON: None. NUMBER OF VIEWS: One view. TECHNIQUE: Supine radiographic image of the abdomen acquired. LIMITATIONS: None. FINDINGS: BOWEL GAS PATTERN: Colon is distended with air. There is considerable stool in the right colon. CALCIFICATIONS: No suspicious calcifications. SOFT TISSUES: No gross mass or suggestion of organomegaly. HARDWARE: None in the abdomen. BONES: No acute fracture. No worrisome bone lesions. OTHER: No other significant finding. IMPRESSION: Colonic distention. Consider barium enema to rule out volvulus. TECHNICAL DOCUMENTATION: JOB ID: [id number] [employer]- All Rights Reserved Reading location - IP/workstation name: [email or web address]
[2018-05-19 17:35] LABS: ANION GAP 17 (5-19); BLOOD UREA NITROGEN 65 mg/dL (7-20); CALCIUM 8.3 mg/dL (8.4-10.2); CARBON DIOXIDE 13 mmol/L (22-30); CHLORIDE 128 mmol/L (98-107); POTASSIUM 4.4 mmol/L (3.6-5.0); SODIUM 158.3 mmol/L (137-145)
[2018-05-19 17:52] LABS: GLUCOSE 508 mg/dL (75-110)
[2018-05-19] MEDS ORDERED: PIPERACILLIN/TAZOBACTAM 3.375 GM VIAL IV SCH (18:00)
[2018-05-19] MEDS: DEXTROSE 5%-WATER 250 ML with NOREPINEPHRINE BITARTRATE 4 MG IV PRN ×2 (18:37)
[2018-05-19] MEDS: INSULIN LISPRO 100 UNIT/ML 3 ML VIAL SUBCUT SCH ×2 (18:38→23:46)
[2018-05-19] MEDS: PIPERACILLIN SODIUM/TAZOBACTAM 2.25 GM in NORMAL SALINE 50 ML IV SCH (18:47)
[2018-05-19 18:58] LABS: HEMATOCRIT 41.9 % (37.9-51.0); MEAN CORPUSCULAR HEMOGLOBIN 31.6 pg (27.0-33.4); RED BLOOD COUNT 4.11 10^6/uL (4.35-5.55); RED CELL DISTRIBUTION WIDTH 17.6 % (11.5-14.0); WHITE BLOOD COUNT 8.2 10^3/uL (4.0-10.5)
[2018-05-19 19:18] LABS: MEAN CORPUSCULAR VOLUME 102 fl (80-97)
[2018-05-19 19:19] LABS: PLATELET COUNT 50 10^3/uL (150-450)
[2018-05-19] MEDS ORDERED: VANCOMYCIN HCL INJ 1000 MG VIAL IV SCH (22:00)
[2018-05-20 01:17] LABS: HEMATOCRIT 43.7 % (37.9-51.0); HEMOGLOBIN 13.7 g/dL (13.5-17.0); MEAN CORPUSCULAR HEMOGLOBIN 31.6 pg (27.0-33.4); MEAN CORPUSCULAR HGB CONC 31.4 g/dL (32.0-36.0); MEAN CORPUSCULAR VOLUME 101 fl (80-97); RED BLOOD COUNT 4.35 10^6/uL (4.35-5.55); RED CELL DISTRIBUTION WIDTH 17.7 % (11.5-14.0); WHITE BLOOD COUNT 6.9 10^3/uL (4.0-10.5)
[2018-05-20] MEDS: PIPERACILLIN SODIUM/TAZOBACTAM 2.25 GM in NORMAL SALINE 50 ML IV SCH ×2 (01:24→10:29)
[2018-05-20 01:46] LABS: PLATELET COUNT 36 10^3/uL (150-450)
[2018-05-20] MEDS: DEXTROSE 5%-WATER 250 ML with NOREPINEPHRINE BITARTRATE 4 MG IV PRN ×4 (02:47→10:29)
[2018-05-20] MEDS ORDERED: SODIUM BICARBONATE 8.4% INJ 50 MEQ/50 ML DISP.SYRIN ONE ×9 (04:57→12:41)
[2018-05-20] MEDS ORDERED: DILTIAZEM HCL INJ 25 MG/5 ML VIAL ONE (05:09)
[2018-05-20] MEDS ORDERED: PHENYLEPHRINE HCL INJ/PF 10 MG/1 ML SDV ONE ×4 (05:14→11:51)
[2018-05-20 05:41] LABS: HEMOGLOBIN 15.1 g/dL (13.5-17.0); MEAN CORPUSCULAR HEMOGLOBIN 31.7 pg (27.0-33.4); MEAN CORPUSCULAR HGB CONC 29.6 g/dL (32.0-36.0); RED BLOOD COUNT 4.76 10^6/uL (4.35-5.55); RED CELL DISTRIBUTION WIDTH 18.4 % (11.5-14.0); WHITE BLOOD COUNT 6.7 10^3/uL (4.0-10.5)
[2018-05-20 05:50] LABS: ALANINE AMINOTRANSFERASE 329 U/L (21-72); ALBUMIN 3.7 g/dL (3.5-5.0); ALKALINE PHOSPHATASE 77 U/L (38-126); ASPARTATE AMINO TRANSFERASE 548 U/L (17-59); BILIRUBIN,DIRECT 0.7 mg/dL (0.0-0.4); BILIRUBIN,TOTAL 1.2 mg/dL (0.2-1.3); BLOOD UREA NITROGEN 66 mg/dL (7-20); CALCIUM 10.3 mg/dL (8.4-10.2); PHOSPHORUS 11.8 mg/dL (2.5-4.5); TOTAL PROTEIN 6.7 g/dL (6.3-8.2)
[2018-05-20 05:54] LABS: CREATINE KINASE MB 28.9 ng/mL (<4.55)
[2018-05-20 05:56] LABS: CARBON DIOXIDE 11 mmol/L (22-30); CHLORIDE 129 mmol/L (98-107); SODIUM 165.6 mmol/L (137-145)
[2018-05-20 05:58] LABS: ARTERIAL BLOOD BASE EXCESS -23.7 mmol/L; ARTERIAL BLOOD H2CO3 1.77 mmol/L (1.05-1.35); ARTERIAL BLOOD O2 SATURATION 91.9 % (94-98); ARTERIAL BLOOD PCO2 58.7 mmHg (35-45); ARTERIAL BLOOD PO2 106.6 mmHg (80-100); ARTERIAL BLOOD TOTAL CO2 11.8 mmol/L (23-27)
[2018-05-20] MEDS: INSULIN LISPRO 100 UNIT/ML 3 ML VIAL SUBCUT SCH ×2 (06:00→12:25)
[2018-05-20 06:06] LABS: ARTERIAL BLOOD FIO2 100%
[2018-05-20 06:08] LABS: ARTERIAL BLOOD PH 6.85 (7.35-7.45)
[2018-05-20 06:15] LABS: TROPONIN I 0.726 ng/mL
[2018-05-20 06:17] LABS: GLUCOSE 407 mg/dL (75-110)
[2018-05-20 06:18] LABS: ANION GAP 26 (5-19)
[2018-05-20 06:26] LABS: CREATINE KINASE 5086 U/L (55-170)
[2018-05-20 06:33] LABS: POTASSIUM 5.5 mmol/L (3.6-5.0)
[2018-05-20 06:47] LABS: ABSOLUTE LYMPHOCYTES# (MANUAL) 2.7 10^3/uL (0.5-4.7); ABSOLUTE MONOCYTES # (MANUAL) 0.4 10^3/uL (0.1-1.4); ABSOLUTE NEUTROPHILS# (MANUAL) 3.6 10^3/uL (1.7-8.2); BAND NEUTROPHILS % (MANUAL) 7 % (3-5); BASOPHILS % (MANUAL) 0 % (0-2); EOSINOPHILS % (MANUAL) 0 % (0-6); LYMPHOCYTES % (MANUAL) 40 % (13-45); METAMYELOCYTES % (MANUAL) 2 % (0); MONOCYTES % (MANUAL) 6 % (3-13); SEGMENTED NEUTROPHILS % (MAN) 45 % (42-78); TOTAL CELLS COUNTED 100
[2018-05-20] MEDS ORDERED: NORMAL SALINE IV PRN ×2 (06:48)
[2018-05-20] MEDS ORDERED: SODIUM BICARBONATE IV PRN ×2 (06:48)
[2018-05-20 06:53] LABS: ANISOCYTOSIS 2+; BURR CELLS 3+; PLATELET COMMENT DECREASED; POIKILOCYTOSIS 3+
[2018-05-20 07:20] LABS: PLATELET LARGE PRESENT
[2018-05-20 07:21] LABS: MEAN CORPUSCULAR VOLUME 107 fl (80-97); PLATELET COUNT 33 10^3/uL (150-450)
--- NOTE | 2018-05-20 08:06 | EKG REPORT ---
SEVERITY:- ABNORMAL ECG - ACCELERATED JUNCTIONAL RHYTHM PROBABLE INFERIOR INFARCT, OLD ANTERIOR INJURY, EARLY ACUTE INFARCT : Confirmed by: Jaime Pryor MD 20-May-2018 08:05:16
[2018-05-20] MEDS ORDERED: DEXTROSE 5%-WATER 1000 ML 1,000 ML with SODIUM BICARBONATE 150 MEQ IV PRN ×2 (08:58)
[2018-05-20 09:11] LABS: ARTERIAL BLOOD BASE EXCESS -29.2 mmol/L; ARTERIAL BLOOD FIO2 100%; ARTERIAL BLOOD HCO3 7.2 mmol/L (20-24); ARTERIAL BLOOD O2 SATURATION 89.8 % (94-98); ARTERIAL BLOOD PCO2 59.7 mmHg (35-45); ARTERIAL BLOOD PO2 113.9 mmHg (80-100)
[2018-05-20] MEDS: DEXTROSE 5%-WATER 250 ML with EPINEPHRINE/PF 1 MG IV PRN ×4 (09:20→13:25)
[2018-05-20 09:36] LABS: ALANINE AMINOTRANSFERASE 631 U/L (21-72); ALBUMIN 3.3 g/dL (3.5-5.0); ALKALINE PHOSPHATASE 68 U/L (38-126); BILIRUBIN,DIRECT 0.8 mg/dL (0.0-0.4); BILIRUBIN,TOTAL 1.3 mg/dL (0.2-1.3); BLOOD UREA NITROGEN 65 mg/dL (7-20); CALCIUM 10.4 mg/dL (8.4-10.2); GLUCOSE 375 mg/dL (75-110); PHOSPHORUS 12.6 mg/dL (2.5-4.5); POTASSIUM 5.6 mmol/L (3.6-5.0); TOTAL PROTEIN 6.3 g/dL (6.3-8.2)
[2018-05-20 09:41] LABS: CHLORIDE 129 mmol/L (98-107); HEMATOCRIT 54.7 % (37.9-51.0); HEMOGLOBIN 15.8 g/dL (13.5-17.0); MEAN CORPUSCULAR HEMOGLOBIN 31.6 pg (27.0-33.4); MEAN CORPUSCULAR HGB CONC 28.9 g/dL (32.0-36.0); MEAN CORPUSCULAR VOLUME 110 fl (80-97); RED BLOOD COUNT 4.99 10^6/uL (4.35-5.55); RED CELL DISTRIBUTION WIDTH 18.7 % (11.5-14.0); SODIUM 164.9 mmol/L (137-145); WHITE BLOOD COUNT 8.3 10^3/uL (4.0-10.5)
[2018-05-20 09:42] LABS: ANION GAP 30 (5-19)
[2018-05-20 09:43] LABS: ASPARTATE AMINO TRANSFERASE 934 U/L (17-59)
[2018-05-20 09:44] LABS: CARBON DIOXIDE 6 mmol/L (22-30)
[2018-05-20 10:00] LABS: ARTERIAL BLOOD BASE EXCESS -13.3 mmol/L; ARTERIAL BLOOD H2CO3 1.78 mmol/L (1.05-1.35); ARTERIAL BLOOD HCO3 16.7 mmol/L (20-24); ARTERIAL BLOOD O2 SATURATION 93.7 % (94-98); ARTERIAL BLOOD PO2 94.8 mmHg (80-100); ARTERIAL BLOOD TOTAL CO2 18.5 mmol/L (23-27)
[2018-05-20 10:02] LABS: ARTERIAL BLOOD FIO2 100%
[2018-05-20 10:06] LABS: ARTERIAL BLOOD PH 7.07 (7.35-7.45)
[2018-05-20 10:11] LABS: PLATELET COUNT 28 10^3/uL (150-450)
[2018-05-20] MEDS ORDERED: VASOPRESSIN INJ 20 UNIT/1 ML VIAL ONE (10:12)
[2018-05-20] MEDS ORDERED: NOREPINEPHRINE BITARTRATE INJ/PF 4 MG/4 ML SDV IV ONE (10:13)
--- NOTE | 2018-05-20 10:24 | Operative Report ---
Operative Report DATE OF SURGERY: 05/20/18 Operative Report: Patient with septic shock multiple vasopressor agents no arterial and poor IV access multiple indications for arterial line PREOPERATIVE DIAGNOSIS: septic shock POSTOPERATIVE DIAGNOSIS: same OPERATION: L femoral a-line SURGEON: MORIAH ADAMS ANESTHESIA: GA TISSUE REMOVED OR ALTERED: na COMPLICATIONS: none ESTIMATED BLOOD LOSS: 3
[2018-05-20 10:25] LABS: SEGMENTED NEUTROPHILS % (MAN) 34 % (42-78); TOTAL CELLS COUNTED 100
[2018-05-20 10:26] LABS: ABSOLUTE LYMPHOCYTES# (MANUAL) 2.9 10^3/uL (0.5-4.7); ABSOLUTE MONOCYTES # (MANUAL) 0.1 10^3/uL (0.1-1.4); ABSOLUTE NEUTROPHILS# (MANUAL) 5.3 10^3/uL (1.7-8.2); BASOPHILS % (MANUAL) 0 % (0-2); EOSINOPHILS % (MANUAL) 0 % (0-6); LYMPHOCYTES % (MANUAL) 35 % (13-45); METAMYELOCYTES % (MANUAL) 2 % (0); MONOCYTES % (MANUAL) 1 % (3-13); NUCLEATED RED BLOOD CELLS 3 /100 WBC (0)
[2018-05-20 10:28] LABS: BAND NEUTROPHILS % (MANUAL) 27 % (3-5); MYELOCYTES % (MANUAL) 1 % (0); PLATELET COMMENT DECREASED; TOXIC GRANULATION 1+; TOXIC VACUOLATION PRESENT
[2018-05-20] MEDS: PANTOPRAZOLE SODIUM 40 MG VIAL IV SCH (10:28)
[2018-05-20 10:29] LABS: ACANTHOCYTES 1+; BURR CELLS 1+; PLATELET GIANT PRESENT; PLATELET LARGE PRESENT; POIKILOCYTOSIS 2+; SCHISTOCYTES SLIGHT
[2018-05-20 10:30] LABS: POLYCHROMASIA SLIGHT
[2018-05-20] MEDS ORDERED: NORMAL SALINE INJ/PF 0.9% 10 ML SDV IV PRN (10:42)
[2018-05-20] MEDS ORDERED: CALCIUM GLUCONATE 1000 MG/10 ML INJ IV ONE (11:00)
[2018-05-20] MEDS ORDERED: EPINEPHRINE INJ 1 MG/10 ML DISP.SYRIN ONE ×2 (11:00)
[2018-05-20 12:04] LABS: ARTERIAL BLOOD BASE EXCESS -19.2 mmol/L; ARTERIAL BLOOD H2CO3 1.37 mmol/L (1.05-1.35); ARTERIAL BLOOD HCO3 11.1 mmol/L (20-24); ARTERIAL BLOOD O2 SATURATION 81.7 % (94-98); ARTERIAL BLOOD PCO2 45.6 mmHg (35-45); ARTERIAL BLOOD PO2 66.6 mmHg (80-100); ARTERIAL BLOOD TOTAL CO2 12.5 mmol/L (23-27)
[2018-05-20 12:08] LABS: ARTERIAL BLOOD FIO2 100%; ARTERIAL BLOOD PH 7.01 (7.35-7.45)
[2018-05-20] MEDS ORDERED: INSULIN REG, HUMAN 100 UNIT/ML 3 ML VIAL (PYX) ONE (12:25)
[2018-05-20] MEDS ORDERED: DEXTROSE 50%-WATER 25 GM/50 ML DISP.SYRIN IV ONE (12:26)
[2018-05-20] MEDS ORDERED: DEXTROSE 5%-WATER 250 ML with VASOPRESSIN 100 UNIT IV PRN ×2 (12:30)
[2018-05-20] MEDS ORDERED: DEXTROSE 5%-WATER 250 ML with PHENYLEPHRINE HCL 40 MG IV PRN ×2 (12:30)
[2018-05-20 12:34] LABS: ALBUMIN 1.5 g/dL (3.5-5.0); ALKALINE PHOSPHATASE 40 U/L (38-126); BILIRUBIN,DIRECT 1.1 mg/dL (0.0-0.4); BILIRUBIN,TOTAL 1.6 mg/dL (0.2-1.3); BLOOD UREA NITROGEN 66 mg/dL (7-20); CHLORIDE 128 mmol/L (98-107); GLUCOSE 343 mg/dL (75-110); TOTAL PROTEIN 3.3 g/dL (6.3-8.2)
--- NOTE | 2018-05-20 12:38 | RADIOLOGY REPORT (SQ) ---
EXAM DESCRIPTION: CHEST SINGLE VIEW COMPLETED DATE/TIME: 05/20/2018 12:30 pm REASON FOR STUDY: ASPIRATION COMPARISON: 05/19/2018 EXAM PARAMETERS: NUMBER OF VIEWS: One view. TECHNIQUE: Single frontal radiographic view of the chest acquired. RADIATION DOSE: NA LIMITATIONS: None. FINDINGS: LUNGS AND PLEURA: There is considerable retrocardiac opacification on the left. Approxima te 20% right pneumothorax is present. MEDIASTINUM AND HILAR STRUCTURES: No masses. Contour normal. HEART AND VASCULAR STRUCTURES: Heart normal in size. Normal vasculature. BONES: No acute findings. HARDWARE: Endotracheal tube in good position. An NG tube extends to the stomach. OTHER: No other significant finding. IMPRESSION: Small right pneumothorax. Endotracheal tube and NG tube as described. Possible airspac e disease in the left lower lobe. TECHNICAL DOCUMENTATION: JOB ID: [id number] [employer]- All Rights Reserved Reading location - IP/workstation name: [email or web address]
[2018-05-20 12:43] LABS: CARBON DIOXIDE 13 mmol/L (22-30); SODIUM 165.7 mmol/L (137-145)
[2018-05-20 12:54] LABS: POTASSIUM 3.2 mmol/L (3.6-5.0)
[2018-05-20 12:56] LABS: ALANINE AMINOTRANSFERASE 1598 U/L (21-72)
[2018-05-20 12:57] LABS: ANION GAP 25 (5-19); CALCIUM 6.8 mg/dL (8.4-10.2)
[2018-05-20 13:21] VITALS: BP 110/93
[2018-05-20 13:32] LABS: ASPARTATE AMINO TRANSFERASE 2486 U/L (17-59)
[2018-05-20 15:10] LABS: PATH REVIEW PATHOLOGIST REVIEWED
--- NOTE | 2018-05-20 16:00 | PDOC CONSULTATION ---
Consultation Consult Date: 05/20/18 Attending physician:: ANGY CAVANAUGH Consult reason:: sepsis,shock History of Present Illness Admission Date/PCP: 05/19/18 12:36 MARICARMEN FLOYD ND History of Present Illness: LB KING JR is a 73 year old male, resident of "[facility]" presented to the ED obtunded poor respiratory effort hypertensive subsequently intubated he apparently has not had a rapid decline over the last 3-4 weeks extremely poor p.o. intake over the last 7-10 days. He is currently intubated and sedated in the ICU on 3 vasopressors lactic acid of 21 pH is gone from 7.20 down to 6.70. The distended colon greater than 5 weight loss less than 25 coffee ground emesis with a feculent smell NG tube. He is currently a kimble of the formerly [facility] however there are discrepancies between of the [facility] and the family would like to pursue his issues Past Medical History Cardiac Medical History: Reports: Hyperlipidema, Hypertension Pulmonary Medical History: Reports: Chronic Obstructive Pulmonary Disease (COPD), Intubation Denies: Tuberculosis Neurological Medical History: Endocrine Medical History: Reports: Diabetes Mellitus Type 1, Diabetes Mellitus Type 2 Renal/ Medical History: Reports: End Stage Renal Disease GI Medical History: Denies: Crohn's Disease, Peptic Ulcer Disease Psychiatric Medical History: Reports: Dementia Hematology: Denies: Anemia, Sickle Cell Disease Past Surgical History Past Surgical History: Reports: Orthopedic Surgery - foot surgery Social History Information Source: [facility] Records Lives with: Guardian, Care Home Smoking Status: Unknown if Ever Smoked Hx Recreational Drug Use: No Hx Prescription Drug Abuse: No Do you have pets?: No Have you had any respiratory illnesses as a child?: No Have you been exposed to any sick contacts recently?: No Have you had any recent respiratory illnesses?: No Family History Family History: Other - Unknown Parental Family History Reviewed: No Children Family History Reviewed: No Sibling(s) Family History Reviewed.: No Medication/Allergy Home Medications: Aspirin [Aspirin EC 81 mg Tablet] 81 mg PO DAILY 11/20/11 Metoprolol Tartrate [Lopressor 25 Mg Tablet] 12.5 mg PO Q12 11/20/11 Benztropine Mesylate [Benztropine Mesylate 2 mg Tablet] 2 mg PO QHS 05/19/18 Divalproex Sodium [Depakote] 125 mg PO QHS 05/19/18 Docusate Sodium [Colace 100 mg Capsule] 100 mg PO BID 05/19/18 Finasteride [Proscar 5 mg Tablet] 5 mg PO DAILY 05/19/18 Flu Vacc [id number](65Yr Up)/Pf [Fluzone High-Dose Syr] 0.5 ml IM .RECEIVED 01/27/18 MDD 01/27/18 05/19/18 Haloperidol Lactate [Haldol Oral Soln 10 Mg/5 Ml Udcup] 1 mg PO Q4 05/19/18 Insulin Glargine,Hum.rec.anlog [Lantus Insulin Inj 300 Unit/3 ml Pen] 4 unit SUBCUT QHS 05/19/18 Insulin Lispro [Humalog Insulin 100 Unit/1 ml 3 ml Vial] 0 unit SUBCUT .SLD SCALE 05/19/18 Lisinopril [Prinivil 10 mg Tablet] 20 mg PO DAILY 05/19/18 Lorazepam [Ativan 0.5 mg Tablet] 0.5 mg PO Q3HP PRN 05/19/18 Lorazepam [Ativan 1 mg Tablet] 1 mg PO Q4 MDD SCHEDULED 05/19/18 Morphine Sulfate [Roxanol] 5 mg PO Q4 MDD SCHEDULED 05/19/18 Paroxetine HCl [Paxil] 40 mg PO DAILY 05/19/18 Allergies/Adverse Reactions: No Known Allergies Allergy (Verified 02/11/17 19:36) Review of Systems ROS unobtainable: Due to endotracheal tube, Due to mental status Physical Exam Vital Signs: Temp Pulse Resp BP Pulse Ox 96.8 F L 84 20 85/51 L 98 05/20/18 09:03 05/20/18 08:00 05/20/18 09:03 05/20/18 09:03 05/20/18 09:03 Intake & Output 05/19/18 05/20/18 05/21/18 06:59 06:59 06:59 Intake Total 64566 Output Total 325 Balance 9924 Weight 86.2 kg General appearance: PRESENT: no acute distress, disheveled. ABSENT: cooperative Head exam: PRESENT: atraumatic, normocephalic Eye exam: PRESENT: conjunctiva pale. ABSENT: EOMI, nystagmus, scleral icterus Mouth exam: PRESENT: dry mucosa, neck supple, tongue midline, other - ET tube in place Neck exam: ABSENT: carotid bruit, JVD, lymphadenopathy, thyromegaly, tracheal deviation, tracheostomy Respiratory exam: PRESENT: decreased breath sounds, prolonged expiratory phas, rales, rhonchi, tachypnea, unlabored. ABSENT: retraction, stridor, symmetrical Cardiovascular exam: PRESENT: RRR, +S1, +S2, tachycardia Pulses: PRESENT: normal radial pulses GI/Abdominal exam: PRESENT: distended, soft Gentrourinary exam: PRESENT: indwelling catheter Extremities exam: ABSENT: calf tenderness, clubbing, full ROM, joint swelling, pedal edema Musculoskeletal exam: ABSENT: ambulatory, deformity, dislocation, full ROM Neurological exam: ABSENT: awake Skin exam: PRESENT: dry, warm Results Laboratory Results: 05/20/18 09:06 05/20/18 09:06 05/19/18 05/19/18 05/19/18 13:07 17:11 17:11 WBC Cancelled RBC Cancelled Hgb Cancelled Hct Cancelled MCV Cancelled MCH Cancelled MCHC Cancelled RDW Cancelled Plt Count Cancelled Seg Neutrophils % Lymphocytes % Monocytes % Eosinophils % Basophils % Absolute Neutrophils Absolute Lymphocytes Absolute Monocytes Absolute Eosinophils Absolute Basophils Carbonic Acid HCO3/H2CO3 Ratio ABG pH ABG pCO2 ABG pO2 ABG HCO3 ABG O2 Saturation ABG Base Excess FiO2 Sodium 158.3 H Potassium 4.4 Chloride 128 H Carbon Dioxide 13 L Anion Gap 17 BUN 65 H Creatinine 5.58 H Est GFR ( Amer) 12 L Est GFR (Non-Af Amer) 10 L Glucose 508 H* Lactic Acid 6.1 H Calcium 8.3 L Phosphorus Magnesium Total Bilirubin AST ALT Alkaline Phosphatase Total Protein Albumin 05/19/18 05/20/18 05/20/18 18:50 01:09 05:15 WBC 8.2 6.9 RBC 4.11 L 4.35 Hgb 13.0 L D 13.7 Hct 41.9 43.7 MCV 102 H D 101 H MCH 31.6 31.6 MCHC 31.0 L 31.4 L RDW 17.6 H 17.7 H Plt Count 50 L 36 L Seg Neutrophils % Lymphocytes % Monocytes % Eosinophils % Basophils % Absolute Neutrophils Absolute Lymphocytes Absolute Monocytes Absolute Eosinophils Absolute Basophils Carbonic Acid HCO3/H2CO3 Ratio ABG pH ABG pCO2 ABG pO2 ABG HCO3 ABG O2 Saturation ABG Base Excess FiO2 Sodium 165.6 H Potassium 5.5 H D Chloride 129 H Carbon Dioxide 11 L Anion Gap 26 H BUN 66 H Creatinine 5.41 H Est GFR ( Amer) 13 L Est GFR (Non-Af Amer) 10 L Glucose 407 H* Lactic Acid Calcium 10.3 H Phosphorus 11.8 H Magnesium 2.6 H Total Bilirubin 1.2 AST 548 H ALT 329 H Alkaline Phosphatase 77 Total Protein 6.7 Albumin 3.7 05/20/18 05/20/18 05/20/18 05:15 05:15 05:31 WBC 6.7 RBC 4.76 Hgb 15.1 Hct Not Reportable MCV 107 H D MCH 31.7 MCHC 29.6 L RDW 18.4 H Plt Count 33 L Seg Neutrophils % Not Reportable Lymphocytes % Not Reportable Monocytes % Not Reportable Eosinophils % Not Reportable Basophils % Not Reportable Absolute Neutrophils Not Reportable Absolute Lymphocytes Not Reportable Absolute Monocytes Not Reportable Absolute Eosinophils Not Reportable Absolute Basophils Not Reportable Carbonic Acid 1.77 H HCO3/H2CO3 Ratio 5:1 ABG pH 6.85 L* ABG pCO2 58.7 H ABG pO2 106.6 H ABG HCO3 10.0 L ABG O2 Saturation 91.9 L ABG Base Excess -23.7 FiO2 100% Sodium Potassium Chloride Carbon Dioxide Anion Gap BUN Creatinine Est GFR ( Amer) Est GFR (Non-Af Amer) Glucose Lactic Acid 16.5 H Calcium Phosphorus Magnesium Total Bilirubin AST ALT Alkaline Phosphatase Total Protein Albumin 05/20/18 05/20/18 05/20/18 08:50 09:06 09:06 WBC 8.3 RBC 4.99 Hgb 15.8 Hct 54.7 H MCV 110 H MCH 31.6 MCHC 28.9 L RDW 18.7 H Plt Count 28 L* Seg Neutrophils % Not Reportable Lymphocytes % Not Reportable Monocytes % Not Reportable Eosinophils % Not Reportable Basophils % Not Reportable Absolute Neutrophils Not Reportable Absolute Lymphocytes Not Reportable Absolute Monocytes Not Reportable Absolute Eosinophils Not Reportable Absolute Basophils Not Reportable Carbonic Acid 1.80 H HCO3/H2CO3 Ratio 4:1 ABG pH 6.70 L* ABG pCO2 59.7 H ABG pO2 113.9 H ABG HCO3 7.2 L ABG O2 Saturation 89.8 L ABG Base Excess -29.2 FiO2 100% Sodium Potassium Chloride Carbon Dioxide Anion Gap BUN Creatinine Est GFR ( Amer) Est GFR (Non-Af Amer) Glucose Lactic Acid 21.0 H Calcium Phosphorus Magnesium Total Bilirubin AST ALT Alkaline Phosphatase Total Protein Albumin 05/20/18 05/20/18 09:06 09:54 WBC RBC Hgb Hct MCV MCH MCHC RDW Plt Count Seg Neutrophils % Lymphocytes % Monocytes % Eosinophils % Basophils % Absolute Neutrophils Absolute Lymphocytes Absolute Monocytes Absolute Eosinophils Absolute Basophils Carbonic Acid 1.78 H HCO3/H2CO3 Ratio 9:1 ABG pH 7.07 L* ABG pCO2 59.0 H ABG pO2 94.8 ABG HCO3 16.7 L ABG O2 Saturation 93.7 L ABG Base Excess -13.3 FiO2 100% Sodium 164.9 H Potassium 5.6 H Chloride 129 H Carbon Dioxide 6 L* Anion Gap 30 H BUN 65 H Creatinine 5.79 H Est GFR ( Amer) 12 L Est GFR (Non-Af Amer) 10 L Glucose 375 H Lactic Acid Calcium 10.4 H Phosphorus 12.6 H Magnesium 2.7 H Total Bilirubin 1.3 AST 934 H ALT 631 H Alkaline Phosphatase 68 Total Protein 6.3 Albumin 3.3 L 05/19/18 05/19/18 05/20/18 08:20 08:20 05:15 Creatine Kinase 1280 H 5086 H CK-MB (CK-2) Troponin I 0.250 05/20/18 05:15 Creatine Kinase CK-MB (CK-2) 28.90 H Troponin I 0.726 Impressions: KUB X-Ray 05/19/18 00:00 IMPRESSION: Colonic distention. Consider barium enema to rule out volvulus. Chest X-Ray 05/19/18 08:20 IMPRESSION: 1. Endotracheal tube is positioned with tip below the thoracic inlet. 2. Esophagogastric tube within the right lower lobe bronchial system on images 1 and 2 and has been removed in image labeled 3 of 3. 3. No acute abnormality of the lungs. 4. Gas distended bowel in the upper abdomen. Head CT 05/19/18 08:21 IMPRESSION: MILD CHRONIC CHANGES OF ATROPHY AND MICROVASCULAR ISCHEMIA. NO ACUTE PROCESS. EVIDENCE OF ACUTE STROKE: NO. Assessment & Plan - Diagnosis (1) Septic shock Is this a current diagnosis for this admission?: Yes Plan: Vasopressor agents used bandemia Labs- All tests 24 hr 05/19/18 05/20/18 05/20/18 08:20 05:15 09:06 Band Neutrophils % 11 H 7 H 27 H D (2) Acute renal failure Is this a current diagnosis for this admission?: Yes Plan: Anuric creatinine greater than 5 (3) Thrombocytopenia Is this a current diagnosis for this admission?: Yes Plan: Labs- All tests 24 hr 05/19/18 05/19/18 05/20/18 08:20 18:50 01:09 Plt Count 55 L 50 L 36 L 05/20/18 05/20/18 05:15 09:06 Plt Count 33 L 28 L* (4) Dementia Qualifiers: Dementia type: unspecified type Dementia behavioral disturbance: with behavioral disturbance Qualified Code(s): F03.91 - Unspecified dementia with behavioral disturbance Is this a current diagnosis for this admission?: Yes Plan: Long standing dementia (5) Hypernatremia Is this a current diagnosis for this admission?: Yes Plan: Labs- All tests 24 hr 05/19/18 05/19/18 05/20/18 08:20 17:11 05:15 Sodium 161.6 H 158.3 H 165.6 H 05/20/18 05/20/18 09:06 11:42 Sodium 164.9 H 165.7 H Reverse free water deficit (6) Respiratory failure Is this a current diagnosis for this admission?: Yes Plan: Labs- All tests 24 hr 05/19/18 05/20/18 05/20/18 08:20 05:15 05:31 ABG pH 6.85 L* ABG pCO2 58.7 H ABG pO2 106.6 H VBG pH 7.20 L Lactic Acid 16.5 H 05/20/18 05/20/18 05/20/18 08:50 09:06 09:54 ABG pH 6.70 L* 7.07 L* ABG pCO2 59.7 H 59.0 H ABG pO2 113.9 H 94.8 VBG pH Lactic Acid 21.0 H 05/20/18 11:42 ABG pH 7.01 L* ABG pCO2 45.6 H ABG pO2 66.6 L VBG pH Lactic Acid - Time Total Critical Time (Minutes): 65
--- NOTE | 2018-05-20 16:12 | Operative Report ---
Bedside Procedure - History of Present Illness Indication for Procedure: IV access, multiple pressors Date: 05/20/18 Surgeon: NOELLE BEY - Central Line Right Femoral Time completed: 12:00 Consent obtained: Yes Central line lumen type: Triple Ultrasound guided: No Line secured with sutures: Yes Central line post-insertion: Biopatch applied, Sutured, Sterile dressing applied Complications: No
--- NOTE | 2018-05-20 16:15 | PDOC PROGRESS REPORT ---
Subjective Progress Note for:: 05/20/18 Subjective:: coded x 7 Reason For Visit: UNRESPONSIVENESS Physical Exam Vital Signs: Temp Pulse Resp BP Pulse Ox 96.8 F L 84 20 85/51 L 98 05/20/18 09:03 05/20/18 08:00 05/20/18 09:03 05/20/18 09:03 05/20/18 09:03 Intake & Output 05/19/18 05/20/18 05/21/18 06:59 06:59 06:59 Intake Total 68792 Output Total 325 Balance 9924 Weight 86.2 kg General appearance: PRESENT: no acute distress, disheveled Head exam: PRESENT: atraumatic, normocephalic Eye exam: PRESENT: conjunctiva pale. ABSENT: EOMI, nystagmus, scleral icterus Mouth exam: PRESENT: dry mucosa, neck supple, tongue midline, other - ET tube in place Teeth exam: PRESENT: poor dentation Neck exam: ABSENT: carotid bruit, JVD, lymphadenopathy, thyromegaly, tracheal deviation, tracheostomy Respiratory exam: PRESENT: decreased breath sounds, prolonged expiratory phas, rales, rhonchi, symmetrical, tachypnea, unlabored. ABSENT: retraction, stridor Cardiovascular exam: PRESENT: irregular rhythm Pulses: PRESENT: normal radial pulses GI/Abdominal exam: PRESENT: diminished bowel sounds, distended, soft Gentrourinary exam: PRESENT: indwelling catheter Extremities exam: ABSENT: calf tenderness, clubbing, full ROM, joint swelling, pedal edema Musculoskeletal exam: ABSENT: ambulatory, deformity, dislocation, full ROM Neurological exam: ABSENT: awake Skin exam: PRESENT: dry, warm Results Laboratory Results: 05/20/18 09:06 05/20/18 09:06 05/19/18 05/19/18 05/19/18 13:07 17:11 17:11 WBC Cancelled RBC Cancelled Hgb Cancelled Hct Cancelled MCV Cancelled MCH Cancelled MCHC Cancelled RDW Cancelled Plt Count Cancelled Seg Neutrophils % Lymphocytes % Monocytes % Eosinophils % Basophils % Absolute Neutrophils Absolute Lymphocytes Absolute Monocytes Absolute Eosinophils Absolute Basophils Carbonic Acid HCO3/H2CO3 Ratio ABG pH ABG pCO2 ABG pO2 ABG HCO3 ABG O2 Saturation ABG Base Excess FiO2 Sodium 158.3 H Potassium 4.4 Chloride 128 H Carbon Dioxide 13 L Anion Gap 17 BUN 65 H Creatinine 5.58 H Est GFR ( Amer) 12 L Est GFR (Non-Af Amer) 10 L Glucose 508 H* Lactic Acid 6.1 H Calcium 8.3 L Phosphorus Magnesium Total Bilirubin AST ALT Alkaline Phosphatase Total Protein Albumin 05/19/18 05/20/18 05/20/18 18:50 01:09 05:15 WBC 8.2 6.9 RBC 4.11 L 4.35 Hgb 13.0 L D 13.7 Hct 41.9 43.7 MCV 102 H D 101 H MCH 31.6 31.6 MCHC 31.0 L 31.4 L RDW 17.6 H 17.7 H Plt Count 50 L 36 L Seg Neutrophils % Lymphocytes % Monocytes % Eosinophils % Basophils % Absolute Neutrophils Absolute Lymphocytes Absolute Monocytes Absolute Eosinophils Absolute Basophils Carbonic Acid HCO3/H2CO3 Ratio ABG pH ABG pCO2 ABG pO2 ABG HCO3 ABG O2 Saturation ABG Base Excess FiO2 Sodium 165.6 H Potassium 5.5 H D Chloride 129 H Carbon Dioxide 11 L Anion Gap 26 H BUN 66 H Creatinine 5.41 H Est GFR ( Amer) 13 L Est GFR (Non-Af Amer) 10 L Glucose 407 H* Lactic Acid Calcium 10.3 H Phosphorus 11.8 H Magnesium 2.6 H Total Bilirubin 1.2 AST 548 H ALT 329 H Alkaline Phosphatase 77 Total Protein 6.7 Albumin 3.7 05/20/18 05/20/18 05/20/18 05:15 05:15 05:31 WBC 6.7 RBC 4.76 Hgb 15.1 Hct Not Reportable MCV 107 H D MCH 31.7 MCHC 29.6 L RDW 18.4 H Plt Count 33 L Seg Neutrophils % Not Reportable Lymphocytes % Not Reportable Monocytes % Not Reportable Eosinophils % Not Reportable Basophils % Not Reportable Absolute Neutrophils Not Reportable Absolute Lymphocytes Not Reportable Absolute Monocytes Not Reportable Absolute Eosinophils Not Reportable Absolute Basophils Not Reportable Carbonic Acid 1.77 H HCO3/H2CO3 Ratio 5:1 ABG pH 6.85 L* ABG pCO2 58.7 H ABG pO2 106.6 H ABG HCO3 10.0 L ABG O2 Saturation 91.9 L ABG Base Excess -23.7 FiO2 100% Sodium Potassium Chloride Carbon Dioxide Anion Gap BUN Creatinine Est GFR ( Amer) Est GFR (Non-Af Amer) Glucose Lactic Acid 16.5 H Calcium Phosphorus Magnesium Total Bilirubin AST ALT Alkaline Phosphatase Total Protein Albumin 05/20/18 05/20/18 05/20/18 08:50 09:06 09:06 WBC 8.3 RBC 4.99 Hgb 15.8 Hct 54.7 H MCV 110 H MCH 31.6 MCHC 28.9 L RDW 18.7 H Plt Count 28 L* Seg Neutrophils % Not Reportable Lymphocytes % Not Reportable Monocytes % Not Reportable Eosinophils % Not Reportable Basophils % Not Reportable Absolute Neutrophils Not Reportable Absolute Lymphocytes Not Reportable Absolute Monocytes Not Reportable Absolute Eosinophils Not Reportable Absolute Basophils Not Reportable Carbonic Acid 1.80 H HCO3/H2CO3 Ratio 4:1 ABG pH 6.70 L* ABG pCO2 59.7 H ABG pO2 113.9 H ABG HCO3 7.2 L ABG O2 Saturation 89.8 L ABG Base Excess -29.2 FiO2 100% Sodium Potassium Chloride Carbon Dioxide Anion Gap BUN Creatinine Est GFR ( Amer) Est GFR (Non-Af Amer) Glucose Lactic Acid 21.0 H Calcium Phosphorus Magnesium Total Bilirubin AST ALT Alkaline Phosphatase Total Protein Albumin 05/20/18 05/20/18 09:06 09:54 WBC RBC Hgb Hct MCV MCH MCHC RDW Plt Count Seg Neutrophils % Lymphocytes % Monocytes % Eosinophils % Basophils % Absolute Neutrophils Absolute Lymphocytes Absolute Monocytes Absolute Eosinophils Absolute Basophils Carbonic Acid 1.78 H HCO3/H2CO3 Ratio 9:1 ABG pH 7.07 L* ABG pCO2 59.0 H ABG pO2 94.8 ABG HCO3 16.7 L ABG O2 Saturation 93.7 L ABG Base Excess -13.3 FiO2 100% Sodium 164.9 H Potassium 5.6 H Chloride 129 H Carbon Dioxide 6 L* Anion Gap 30 H BUN 65 H Creatinine 5.79 H Est GFR ( Amer) 12 L Est GFR (Non-Af Amer) 10 L Glucose 375 H Lactic Acid Calcium 10.4 H Phosphorus 12.6 H Magnesium 2.7 H Total Bilirubin 1.3 AST 934 H ALT 631 H Alkaline Phosphatase 68 Total Protein 6.3 Albumin 3.3 L 05/19/18 05/19/18 05/20/18 08:20 08:20 05:15 Creatine Kinase 1280 H 5086 H CK-MB (CK-2) Troponin I 0.250 05/20/18 05:15 Creatine Kinase CK-MB (CK-2) 28.90 H Troponin I 0.726 Impressions: KUB X-Ray 05/19/18 00:00 IMPRESSION: Colonic distention. Consider barium enema to rule out volvulus. Chest X-Ray 05/19/18 08:20 IMPRESSION: 1. Endotracheal tube is positioned with tip below the thoracic in let. 2. Esophagogastric tube within the right lower lobe bronchial system on images 1 and 2 and has been removed in image labeled 3 of 3. 3. No acute abnormality of the lungs. 4. Gas distended bowel in the upper abdomen. Head CT 05/19/18 08:21 IMPRESSION: MILD CHRONIC CHANGES OF ATROPHY AND MICROVASCULAR ISCHEMIA. NO ACUTE PROCESS. EVIDENCE OF ACUTE STROKE: NO. Assessment & Plan - Diagnosis (1) Lactic acid acidosis Is this a current diagnosis for this admission?: Yes Plan: Labs- All tests 24 hr 05/19/18 05/19/18 05/20/18 08:20 13:07 05:15 Lactic Acid 4.7 H 6.1 H 16.5 H 05/20/18 09:06 Lactic Acid 21.0 H (2) Acute renal failure Is this a current diagnosis for this admission?: Yes (3) Aspiration into airway Qualifiers: Encounter type: subsequent encounter Qualified Code(s): T17.908D - Unspecified foreign body in respiratory tract, part unspecified causing other injury, subsequent encounter Is this a current diagnosis for this admission?: Yes Plan: Evidence of food particles in the endotracheal aspirate (4) Dementia Qualifiers: Dementia type: unspecified type Dementia behavioral disturbance: with behavioral disturbance Qualified Code(s): F03.91 - Unspecified dementia with behavioral disturbance Is this a current diagnosis for this admission?: Yes Plan: Long standing dementia (5) Hypernatremia Is this a current diagnosis for this admission?: Yes Plan: Labs- All tests 24 hr 05/19/18 05/19/18 05/20/18 08:20 17:11 05:15 Sodium 161.6 H 158.3 H 165.6 H 05/20/18 05/20/18 09:06 11:42 Sodium 164.9 H 165.7 H Reverse free water deficit (6) Respiratory failure Is this a current diagnosis for this admission?: Yes Plan: Labs- All tests 24 hr 05/19/18 05/20/18 05/20/18 08:20 05:15 05:31 ABG pH 6.85 L* ABG pCO2 58.7 H ABG pO2 106.6 H VBG pH 7.20 L Lactic Acid 16.5 H 05/20/18 05/20/18 05/20/18 08:50 09:06 09:54 ABG pH 6.70 L* 7.07 L* ABG pCO2 59.7 H 59.0 H ABG pO2 113.9 H 94.8 VBG pH Lactic Acid 21.0 H 05/20/18 11:42 ABG pH 7.01 L* ABG pCO2 45.6 H ABG pO2 66.6 L VBG pH Lactic Acid (7) Septic shock Is this a current diagnosis for this admission?: Yes Plan: Vasopressor agents used bandemia Labs- All tests 24 hr 05/19/18 05/20/18 05/20/18 08:20 05:15 09:06 Band Neutrophils % 11 H 7 H 27 H D (8) Thrombocytopenia Is this a current diagnosis for this admission?: Yes Plan: Labs- All tests 24 hr 05/19/18 05/19/18 05/20/18 08:20 18:50 01:09 Plt Count 55 L 50 L 36 L 05/20/18 05/20/18 05:15 09:06 Plt Count 33 L 28 L* - Time Total Critical Time (Minutes): 210 - Plan Summary Plan Summary: Is on the fourth cardiopulmonary resuscitation in the last 4 hours awaiting family members hopefully a more comprehensive plan can be developed for his care 09:10 Patient is again into cardiopulmonary arrest and CPR is in progress have been asked to put in additional lines for venous access family members I have not yet arrived 09:56 Discussed at length with adult protective services has been under their guardianship however this time they wish to support the family. Still no family members available 10;20 Conducting yet another CODE BLUE seem to transien tly stabilize patient but the end result is very limited 10:47 First family member arrived, very noncommittal for other family members to arrive 11:04 several other family member watching cpr 11;35 11:55 family still observing 12:22 family agrees to stop CPR
--- NOTE | 2018-05-20 16:36 | Death Summary ---
Summary Date : 05/20/18 Time of :: 12:45 - Final Diagnosis (1) Respiratory failure Is this a current diagnosis for this admission?: Yes (2) Shock Is this a current diagnosis for this admission?: Yes (3) Hypernatremia Is this a current diagnosis for this admission?: Yes (4) Diabetes mellitus with hyperglycemia Is this a current diagnosis for this admission?: Yes Hospital Course:: 73 years old black male with history of Alzheimer's dementia who lived in [facility]) for the past 7 years. He also had diabetes and hypertension. He was declining clinically progressively as of late. He was a kimble of state since he was admitted to [facility]. He was referred to hospice and was accepted. But apparently some family members recently decided to assume guardianship. From talking to [facility] staff and [facility] social welfare administrator Roeslyn Gibbs, he had no visits from the family members who are trying to assume guardianship for the past 7 years at all. Patient was not eating or drinking for the past 4-5 days. He also developed a fever on the day of his admission. He was obtunded and unresponsive and was intubated in the emergency room. He did not require any sedation at all during his hospitalization. He received 7 L of normal saline in the emergency room and he was still severely hypotensive. Immediately after that he received 2 more liters and had to be put on the pressors. His pupils were nonreactive. He had areflexia. He had no gag reflex. This was all observed on admission. The ER physician discussed with [facility] social welfare administrator and the patient's family and he reported to me that he thought the patient is futile. Patient condition deteriorated very quickly.. Had a cardiac arrest at night and was resuscitated successfully but continued on multiple pressors. 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 This kept on happening 5-6 times after that. We had a meeting with [facility] social welfare administrator, Dr. Gordillo, risk management, patient advocate, discharge planning, patient family (Chris Shipley and their father Forest and their mother). Chris and Eric had not seen Mr. Marrero for several years but they were insisting on continuing full CODE STATUS. Per mother, she mentioned that the last time she saw Mr. Marrero was a week ago and he was not talking, he could not even open his eyes. DSS social welfare administrator decided after consulting was her superior that they will honor the family wishes of full CODE STATUS despite their deep disagreement with that decision because they were in [place]. It was clear to everyone that was futile care. All of care providers agreed with that including, pulmonology Dr. Gordillo, surgery Dr. Meza and nephrology Dr. Hernandez. We discussed this with Forest and he decided to withdraw care and the patient at 12:45 PM.
--- NOTE | 2018-05-20 17:04 | PDOC CONSULTATION ---
Consultation Consult Date: 05/20/18 Consult reason:: bowel obtruction History of Present Illness Admission Date/PCP: 05/19/18 12:36 MARICARMEN FLOYD ND Patient complains of: unresponsive brought from [place] for fever History of Present Illness: LB KING JR is a 73 year old male with history of Alzheimer's dementia,DM,Hypertension was in the Dementia unit for years, He was a DNR and on hospice care. Apparently w unresponsive past 4-5 days but brought to the hospital for fever.He had a CT scan of abdomen/pelvis which showed stool in the right colon with dilatation of colon and Ba Enema recommended to r/o volvulus. His Platelet count was only 29,000. He was intubated and brought to ICU. I was consulted for the CT scan findings. Past Medical History Cardiac Medical History: Reports: Hyperlipidema, Hypertension Pulmonary Medical History: Reports: Chronic Obstructive Pulmonary Disease (COPD), Intubation Denies: Tuberculosis Neurological Medical History: Endocrine Medical History: Reports: Diabetes Mellitus Type 1, Diabetes Mellitus Type 2 Renal/ Medical History: Reports: End Stage Renal Disease GI Medical History: Denies: Crohn's Disease, Peptic Ulcer Disease Psychiatric Medical History: Reports: Dementia Hematology: Denies: Anemia, Sickle Cell Disease Past Surgical History Past Surgical History: Reports: Orthopedic Surgery - foot surgery Social History Lives with: Guardian, [facility] Smoking Status: Unknown if Ever Smoked Hx Recreational Drug Use: No Hx Prescription Drug Abuse: No Family History Family History: Other - Unknown Parental Family History Reviewed: No - No family around Children Family History Reviewed: No Sibling(s) Family History Reviewed.: No Medication/Allergy Home Medications: Aspirin [Aspirin EC 81 mg Tablet] 81 mg PO DAILY 11/20/11 Metoprolol Tartrate [Lopressor 25 Mg Tablet] 12.5 mg PO Q12 11/20/11 Benztropine Mesylate [Benztropine Mesylate 2 mg Tablet] 2 mg PO QHS 05/19/18 Divalproex Sodium [Depakote] 125 mg PO QHS 05/19/18 Docusate Sodium [Colace 100 mg Capsule] 100 mg PO BID 05/19/18 Finasteride [Proscar 5 mg Tablet] 5 mg PO DAILY 05/19/18 Flu Vacc [id number] [id number])/Pf [Fluzone High-Dose Syr] 0.5 ml IM .RECEIVED 10/9/18 MDD 01/27/18 05/19/18 Haloperidol Lactate [Haldol Oral Soln 10 Mg/5 Ml Udcup] 1 mg PO Q4 05/19/18 Insulin Glargine,Hum.rec.anlog [Lantus Insulin Inj 300 Unit/3 ml Pen] 4 unit SUBCUT QHS 05/19/18 Insulin Lispro [Humalog Insulin 100 Unit/1 ml 3 ml Vial] 0 unit SUBCUT .SLD SCALE 05/19/18 Lisinopril [Prinivil 10 mg Tablet] 20 mg PO DAILY 05/19/18 Lorazepam [Ativan 0.5 mg Tablet] 0.5 mg PO Q3HP PRN 05/19/18 Lorazepam [Ativan 1 mg Tablet] 1 mg PO Q4 MDD SCHEDULED 05/19/18 Morphine Sulfate [Roxanol] 5 mg PO Q4 MDD SCHEDULED 05/19/18 Paroxetine HCl [Paxil] 40 mg PO DAILY 05/19/18 Allergies/Adverse Reactions: No Known Allergies Allergy (Verified 02/11/17 19:36) Review of Systems ROS unobtainable: Due to endotracheal tube, Due to mental status Physical Exam Vital Signs: Temp Pulse Resp BP Pulse Ox 92.1 F L 84 24 H 110/93 H 75 L 05/20/18 12:34 05/20/18 08:00 05/20/18 12:34 05/20/18 12:34 05/20/18 12:03 Intake & Output 05/19/18 05/20/18 05/21/18 06:59 06:59 06:59 Intake Total 99860 332 Output Total 325 Balance 9924 332 Weight 86.2 kg Exam: Intubated. ABGs showed pH 6,7 with repeat of 7.07 NGT with fecaloid material Abdomen is soft slightly distended. No tenderness but patient unresponsive all along. Not being given sedation. No mass, no obvious hernia Pupils not reactive to light Results Laboratory Results: 05/20/18 09:06 05/20/18 11:42 05/19/18 05/19/18 05/19/18 17:11 17:11 18:50 WBC Cancelled 8.2 RBC Cancelled 4.11 L Hgb Cancelled 13.0 L D Hct Cancelled 41.9 MCV Cancelled 102 H D MCH Cancelled 31.6 MCHC Cancelled 31.0 L RDW Cancelled 17.6 H Plt Count Cancelled 50 L Seg Neutrophils % Lymphocytes % Monocytes % Eosinophils % Basophils % Absolute Neutrophils Absolute Lymphocytes Absolute Monocytes Absolute Eosinophils Absolute Basophils Carbonic Acid HCO3/H2CO3 Ratio ABG pH ABG pCO2 ABG pO2 ABG HCO3 ABG O2 Saturation ABG Base Excess FiO2 Sodium 158.3 H Potassium 4.4 Chloride 128 H Carbon Dioxide 13 L Anion Gap 17 BUN 65 H Creatinine 5.58 H Est GFR ( Amer) 12 L Est GFR (Non-Af Amer) 10 L Glucose 508 H* Lactic Acid Calcium 8.3 L Phosphorus Magnesium Total Bilirubin AST ALT Alkaline Phosphatase Total Protein Albumin 05/20/18 05/20/18 05/20/18 01:09 05:15 05:15 WBC 6.9 6.7 RBC 4.35 4.76 Hgb 13.7 15.1 Hct 43.7 Not Reportable MCV 101 H 107 H D MCH 31.6 31.7 MCHC 31.4 L 29.6 L RDW 17.7 H 18.4 H Plt Count 36 L 33 L Seg Neutrophils % Not Reportable Lymphocytes % Not Reportable Monocytes % Not Reportable Eosinophils % Not Reportable Basophils % Not Reportable Absolute Neutrophils Not Reportable Absolute Lymphocytes Not Reportable Absolute Monocytes Not Reportable Absolute Eosinophils Not Reportable Absolute Basophils Not Reportable Carbonic Acid HCO3/H2CO3 Ratio ABG pH ABG pCO2 ABG pO2 ABG HCO3 ABG O2 Saturation ABG Base Excess FiO2 Sodium 165.6 H Potassium 5.5 H D Chloride 129 H Carbon Dioxide 11 L Anion Gap 26 H BUN 66 H Creatinine 5.41 H Est GFR ( Amer) 13 L Est GFR (Non-Af Amer) 10 L Glucose 407 H* Lactic Acid Calcium 10.3 H Phosphorus 11.8 H Magnesium 2.6 H Total Bilirubin 1.2 AST 548 H ALT 329 H Alkaline Phosphatase 77 Total Protein 6.7 Albumin 3.7 05/20/18 05/20/18 05/20/18 05:15 05:31 08:50 WBC RBC Hgb Hct MCV MCH MCHC RDW Plt Count Seg Neutrophils % Lymphocytes % Monocytes % Eosinophils % Basophils % Absolute Neutrophils Absolute Lymphocytes Absolute Monocytes Absolute Eosinophils Absolute Basophils Carbonic Acid 1.77 H 1.80 H HCO3/H2CO3 Ratio 5:1 4:1 ABG pH 6.85 L* 6.70 L* ABG pCO2 58.7 H 59.7 H ABG pO2 106.6 H 113.9 H ABG HCO3 10.0 L 7.2 L ABG O2 Saturation 91.9 L 89.8 L ABG Base Excess -23.7 -29.2 FiO2 100% 100% Sodium Potassium Chloride Carbon Dioxide Anion Gap BUN Creatinine Est GFR ( Amer) Est GFR (Non-Af Amer) Glucose Lactic Acid 16.5 H Calcium Phosphorus Magnesium Total Bilirubin AST ALT Alkaline Phosphatase Total Protein Albumin 05/20/18 05/20/18 05/20/18 09:06 09:06 09:06 WBC 8.3 RBC 4.99 Hgb 15.8 Hct 54.7 H MCV 110 H MCH 31.6 MCHC 28.9 L RDW 18.7 H Plt Count 28 L* Seg Neutrophils % Not Reportable Lymphocytes % Not Reportable Monocytes % Not Reportable Eosinophils % Not Reportable Basophils % Not Reportable Absolute Neutrophils Not Reportable Absolute Lymphocytes Not Reportable Absolute Monocytes Not Reportable Absolute Eosinophils Not Reportable Absolute Basophils Not Reportable Carbonic Acid HCO3/H2CO3 Ratio ABG pH ABG pCO2 ABG pO2 ABG HCO3 ABG O2 Saturation ABG Base Excess FiO2 Sodium 164.9 H Potassium 5.6 H Chloride 129 H Carbon Dioxide 6 L* Anion Gap 30 H BUN 65 H Creatinine 5.79 H Est GFR ( Amer) 12 L Est GFR (Non-Af Amer) 10 L Glucose 375 H Lactic Acid 21.0 H Calcium 10.4 H Phosphorus 12.6 H Magnesium 2.7 H Total Bilirubin 1.3 AST 934 H ALT 631 H Alkaline Phosphatase 68 Total Protein 6.3 Albumin 3.3 L 05/20/18 05/20/18 05/20/18 09:54 11:42 11:42 WBC RBC Hgb Hct MCV MCH MCHC RDW Plt Count Seg Neutrophils % Lymphocytes % Monocytes % Eosinophils % Basophils % Absolute Neutrophils Absolute Lymphocytes Absolute Monocytes Absolute Eosinophils Absolute Basophils Carbonic Acid 1.78 H 1.37 H HCO3/H2CO3 Ratio 9:1 8:1 ABG pH 7.07 L* 7.01 L* ABG pCO2 59.0 H 45.6 H ABG pO2 94.8 66.6 L ABG HCO3 16.7 L 11.1 L ABG O2 Saturation 93.7 L 81.7 L ABG Base Excess -13.3 -19.2 FiO2 100% 100% Sodium 165.7 H Potassium 3.2 L D Chloride 128 H Carbon Dioxide 13 L Anion Gap 25 H BUN 66 H Creatinine 5.66 H Est GFR ( Amer) 12 L Est GFR (Non-Af Amer) 10 L Glucose 343 H Lactic Acid Calcium 6.8 L* Phosphorus Magnesium Total Bilirubin 1.6 H AST 2486 H ALT 1598 H Alkaline Phosphatase 40 Total Protein 3.3 L Albumin 1.5 L 05/19/18 05/19/18 05/20/18 08:20 08:20 05:15 Creatine Kinase 1280 H 5086 H CK-MB (CK-2) Troponin I 0.250 05/20/18 05:15 Creatine Kinase CK-MB (CK-2) 28.90 H Troponin I 0.726 Impressions: KUB X-Ray 05/19/18 00:00 IMPRESSION: Colonic distention. Consider barium enema to rule out volvulus. Head CT 05/19/18 08:21 IMPRESSION: MILD CHRONIC CHANGES OF ATROPHY AND MICROVASCULAR ISCHEMIA. NO ACUTE PROCESS. EVIDENCE OF ACUTE STROKE: NO. Chest X-Ray 05/20/18 11:30 IMPRESSION: Small right pneumothorax. Endotracheal tube and NG tube as described. Possible airspace disease in the left lower lobe. Assessment & Plan - Time Time Spent: 30 to 50 Minutes - Plan Summary Plan Summary: Impression: 1) Alzheimer' Dementia with unresponsiveness 2) Severe malnutrition and dehydration with Na 161 3)Severe constipation with stool in the right colon 4) Doubt large bowel obstruction with Volvulus. May need rigid sigmoidoscopy/Ba Enema but appears academic in this pt who is unresponsive on his 5th CPR with platelet 29,000. 5) Elevated BS due to DM and dehydration 6) Septic shock Patient had 4 previous CPR and immediately after evaluation BP noted 50/30 and followed by a 5th CPR. I was with Dr Gordillo and Hospitalist who called pt's nephew on the phone who wants patient fullcode. Pt eventually after brother( immediate relative) who was at bedside finally called off the 9th CPR.
[2018-05-21] MEDS ORDERED: VANCOMYCIN HCL 1,250 MG in DEXTROSE 5%-WATER 250 ML IV SCH (10:00)
[2018-05-21 15:05] LABS: PATH REVIEW PATHOLOGIST REVIEWED
--- NOTE | 2018-05-22 15:50 | Physician Advisory Note ---
Physician Advisor ProgressNote .: Pursuant to the plan for [facility], I have reviewed the medical record for this patient. Physician Advisor Statement: Chart reviewed at request of E coach cleaner. Radiation Control Worker on case documented add'l dx.s of ARF, lactic acidosis, septic shock, thrombocytopenia. Pt came in profoundly hypotensive/tachycardic/tachypneic/febrile at 103 rectally, responsive only to pain, with O2 sat 94% on 100% FiO2 while being bagged for ventilation with resp pattern "irregular" per ED triage nurse; pH was 6.85 with pCO2 58.7, Cr 4.98, plts 55, TBili 1.4, lactate 4.7 then 6.1. - U/A (+) lg LE & mod bld. Ur cx growing Klebsiella pneumoniae. - Pt is documented to have rales & rhonchi per cafeteria attendant, who also documented "evidence of food particles in endotracheal aspirate." Pt was alf resident of [facility]. Although 1st CXR showed no obvious infiltrate, f/u CXR at 12:30 showed "possible airspace dz LLL" along w/20% Rt PTX. - Trop I was 0.250 and climbed to 0.726 on re-check. CK 1280. EKG #1 was read as Afib w/RVR, "consider ant-septal infarct, ...." Attg, please document, in an addendum to DCS, the presence & evidence for the following dx.s (&/or note which of these were considered but ruled out): 1. "Acute Hypoxemic & Hypercarbic Resp Failure, evidenced by O2 sat 94% on 100% FiO2 during bagging ventilation, ABG, + obtundation w/poor resp effort" (need to say Resp Failure is acute or chronic) 2. "Severe sepsis with septic shock, due to ____ [UTI? PNA?], evidenced by that was/were due to sepsis" [Pt's hypotension w/need for pressor support? Ac Resp Failure? AMS w/decreased total GCS of ___? Ac thrombocytopenia? NAZ? HIgh bili? High lactate level?) - Although it seems painfully redundant from the provider's perspective, when a pt has septic shock, we still have to document "severe sepsis with septic shock" when that is what pt has... - as well as stating that the organ dysfunction evidence was due to sepsis rather than another cause.... 3. "NAZ; baseline Cr was 1.0 on 05/10/18" - [Do you think this was "due to ATN which was due to sepsis"? Or "from ATN due to volume depletion"? Or no ATN? ...] 4. "PNA, suspect gram___ type, evidenced by " [rales & rhonchi, fever, AMS, hypoxemia, developing infiltrate on CXR as he continued to be volume resuscitated,...] 5. "Cardiac arrest" 6. "Elevated trop I due to [Sepsis? Tachyarrhythmia? Type 2 LA? ant- septal NSTEMI/STEMI? Combination of these? ..] Thanks for bearing with the documentation needs on this one. Sounds like you really had your hands full. Hope the rest of the week goes better. CK
== END 2018-05-20 12:45 | disposition left against medical advice (07) | DRG 871 ==
LOC: ER 08:04 → EH 12:36 → ICU 14:35
PROVIDERS: ADMIT Internal Medicine; ATTEND Internal Medicine
PROC: 0BH17EZ Insertion of Endotracheal Airway into Trachea, Via Natural or Artificial Opening (ICD-10-PCS; principal; 2018-05-19)
PROC: 5A12012 Performance of Cardiac Output, Single, Manual (ICD-10-PCS; 2018-05-19)
PROC: 04HL33Z Insertion of Infusion Device into Left Femoral Artery, Percutaneous Approach (ICD-10-PCS; 2018-05-20)
PROC: 04HK33Z Insertion of Infusion Device into Right Femoral Artery, Percutaneous Approach (ICD-10-PCS; 2018-05-20)
PROC: 5A12012 Performance of Cardiac Output, Single, Manual (ICD-10-PCS; 2018-05-20)
PROC: 5A12012 Performance of Cardiac Output, Single, Manual (ICD-10-PCS; 2018-05-20)
PROC: 5A12012 Performance of Cardiac Output, Single, Manual (ICD-10-PCS; 2018-05-20)
PROC: 5A12012 Performance of Cardiac Output, Single, Manual (ICD-10-PCS; 2018-05-20)
DX: A41.9 Sepsis, unspecified organism (principal); J96.00 Acute respiratory failure, unspecified whether with hypoxia or hypercapnia; R65.21 Severe sepsis with septic shock; E43 Unspecified severe protein-calorie malnutrition; K56.2 Volvulus; E87.1 Hypo-osmolality and hyponatremia; N17.9 Acute kidney failure, unspecified; T17.820A Food in other parts of respiratory tract causing asphyxiation, initial encounter; I46.9 Cardiac arrest, cause unspecified; R41.82 Altered mental status, unspecified; E78.00 Pure hypercholesterolemia, unspecified; I10 Essential (primary) hypertension; E86.0 Dehydration; E11.65 Type 2 diabetes mellitus with hyperglycemia; K59.09 Other constipation; D69.6 Thrombocytopenia, unspecified; G30.9 Alzheimer's disease, unspecified; F02.80 Dementia in other diseases classified elsewhere, unspecified severity, without behavioral disturbance, psychotic disturbance, mood disturbance, and anxiety; Z79.82 Long term (current) use of aspirin; Z79.4 Long term (current) use of insulin; Z79.899 Other long term (current) drug therapy; Z68.25 Body mass index [BMI] 25.0-25.9, adult
CPT/HCPCS: 36415; 36620; 70450; 71045; 74018; 80048; 80053; 81001; 82550; 82553; 82803; 82962; 83036; 83605; 83735; 84100; 84484; 85025; 85027; 85610; 87040; 87086; 87088; 87186; 92950; 93005; 93010; 94002; 94003; 96361; 96365; 96367; 99291; C1751; C1752; J0153; J0171; J0282; J0610; J1815; J2370; J2543; J3370; J3490; J7030; J7060